=== PATIENT | male | born 1970 | race American Indian/Alaskan Native ===

== ENCOUNTER 2020-03-07 11:55 | Emergency (ER) | payer SELFPAY ==
[2020-03-07 13:11] VITALS: BP 132/93
--- NOTE | 2020-03-07 15:01 | Emergency Department Report ---
- General Chief complaint: Skin/Abscess/Foreign Body Stated complaint: ABD SWELLING Time Seen by Provider: 03/07/20 14:57 Source: patient Mode of arrival: Ambulatory Limitations: No Limitations - History of Present Illness Initial comments: Patient is a 49-year-old male presents emergency room with complaints of a possible abscess to the groin area that began a few days ago. Patient states that he believes it started as an ingrown hair but has enlarged over the last few days. He states he has had these in the past but they usually opened and drained on their own. He denies any drainage, fever, vomiting, diarrhea, chills. He has a past medical history of diabetes and takes Metformin Med. He states that his blood sugar has been stable. He denies any allergies to me dications. - Related Data Previous Rx's Medication Instructions Recorded Last Taken Type Acetaminophen/Codeine [Tylenol 1 tab PO Q8HR PRN #7 tab 03/07/20 Unknown Rx /Codeine # 3 tab] Ibuprofen [Motrin 600 MG tab] 600 mg PO Q8H PRN #14 tablet 03/07/20 Unknown Rx Sulfamethoxazole/Trimethoprim 1 each PO BID 10 Days #20 tablet 03/07/20 Unknown Rx [Bactrim DS TAB] Allergies Allergy/AdvReac Type Severity Reaction Status Date / Time No Known Allergies Allergy Unverified 03/07/20 13:08 Abscess Boil HPI - HPI Chief Complaint: Skin/Abscess/Foreign Body Stated Complaint: ABD SWELLING Time Seen by Provider: 03/07/20 14:57 Home Medications: Previous Rx's Medication Instructions Recorded Last Taken Type Acetaminophen/Codeine [Tylenol 1 tab PO Q8HR PRN #7 tab 03/07/20 Unknown Rx /Codeine # 3 tab] Ibuprofen [Motrin 600 MG tab] 600 mg PO Q8H PRN #14 tablet 03/07/20 Unknown Rx Sulfamethoxazole/Trimethoprim 1 each PO BID 10 Days #20 tablet 03/07/20 Unknown Rx [Bactrim DS TAB] Allergies/Adverse Reactions: Allergies Allergy/AdvReac Type Severity Reaction Status Date / Time No Known Allergies Allergy Unverified 03/07/20 13:08 ED Review of Systems ROS: Stated complaint: ABD SWELLING Other details as noted in HPI Comment: All other systems reviewed and negative ED Past Medical Hx - Past Medical History Previous Medical History?: Yes Hx Diabetes: Yes - Surgical History Past Surgical History?: Yes Additional Surgical History: left ankle surgery - Medications Home Medications: Home Medications Medication Instructions Recorded Confirmed Last Taken Type Acetaminophen/Codeine [Tylenol 1 tab PO Q8HR PRN #7 tab 03/07/20 Unknown Rx /Codeine # 3 tab] Ibuprofen [Motrin 600 MG tab] 600 mg PO Q8H PRN #14 tablet 03/07/20 Unknown Rx Sulfamethoxazole/Trimethoprim 1 each PO BID 10 Days #20 tablet 03/07/20 Unknown Rx [Bactrim DS TAB] ED Physical Exam - General Limitations: No Limitations General appearance: alert, in no apparent distress - Head Head exam: Present: atraumatic, normocephalic - Eye Eye exam: Present: normal appearance - ENT ENT exam: Present: mucous membranes moist - Respiratory Respiratory exam: Absent: respiratory distress, accessory muscle use - Neurological Exam Neurological exam: Present: alert, oriented X3 - Psychiatric Psychiatric exam: Present: normal affect, normal mood - Skin Skin exam: Present: warm, dry, other (3 cm area of induration and increased warmth present to the superior mons pubis, no drainage, no fluctuance, no necrosis, no opening at this time) ED Course Vital Signs 03/07/20 13:08 Temperature 98.6 F Pulse Rate 101 H Respiratory 16 Rate Blood Pressure 132/93 [Left] O2 Sat by Pulse 98 Oximetry ED Medical Decision Making - Medical Decision Making Patient is a 49-year-old male presents emergency room with complaints of a possible abscess to the groin area that began a few days ago. Patient states that he believes it started as an ingrown hair but has enlarged over the last few days. He states he has had these in the past but they usually opened and drained on their own. He denies any drainage, fever, vomiting, diarrhea, chills. He has a past medical history of diabetes and takes Metformin [place]. He states that his blood sugar has been stable. He denies any allergies to medications. VSS. on exam:3 cm area of induration and increased warmth present to the superior mons pubis, no drainage, no fluctuance, no necrosis, no opening at this time. Examination appears consistent with cellulitis at this time. There is no drainable abscess at this time. Will place patient on a trial of outpatient antibiotics and discussed very strict return precautions and advised patient that he needs to have the area reexamined within the next 3 days to see if he needs to have an I&D at that time. Patient given prescription for Bactrim, Tylenol with codeine, ibuprofen. Advised patient Please take medication as prescribed. Do not drive or operate machinery while taking pain medication. Please use warm compresses 3-5 times a day. Follow-up with a primary care doctor in the next 3 days to have the area reexamined. Return to emergency room immediately for any new or worsening symptoms including but not limited to worsening swelling, worsening redness, fever, chills, vomiting, etc. Critical care attestation.: If time is entered above; I have spent that time in minutes in the direct care of this critically ill patient, excluding procedure time. ED Disposition Clinical Impression: Cellulitis Qualifiers: Site of cellulitis: trunk Site of cellulitis of trunk: groin Qualified Code(s): L03.314 - Cellulitis of groin Disposition: - TO HOME OR SELFCARE Is pt being admited?: No Does the pt Need Aspirin: No Condition: Stable Instructions: Cellulitis, Adult Additional Instructions: Please take medication as prescribed. Do not drive or operate machinery while taking pain medication. Please use warm compresses 3-5 times a day. Follow-up with a primary care doctor in the next 3 days to have the area reexamined. Return to emergency room immediately for any new or worsening symptoms including but not limited to worsening swelling, worsening redness, fever, chills, vomiting, etc. Prescriptions: Sulfamethoxazole/Trimethoprim [Bactrim DS TAB] 1 each PO BID 10 Days #20 tablet Ibuprofen [Motrin 600 MG tab] 600 mg PO Q8H PRN #14 tablet PRN Reason: Pain, Moderate (4-6) Acetaminophen/Codeine [Tylenol /Codeine # 3 tab] 1 tab PO Q8HR PRN #7 tab PRN Reason: Pain , Severe (7-10) Referrals: JAMISON RAMOS MD [Primary Care Provider] - 2-3 Days FLAVIO MONTILLA MD [Staff Physician] - 2-3 Days [facility] [Provider Group] - 2-3 Days Time of Disposition: 14:59 Print Language: SLOVENIAN
== END 2020-03-07 15:53 | disposition home or self-care (01) ==
LOC: ED 11:55
DX: L03.314 Cellulitis of groin (principal); E11.9 Type 2 diabetes mellitus without complications; Z98.890 Other specified postprocedural states; Z79.899 Other long term (current) drug therapy
CPT/HCPCS: 99281

== ENCOUNTER 2020-05-26 02:33 | Inpatient (IN) | payer SELFPAY ==
[2020-05-26] MEDS ORDERED: SODIUM CHLORIDE 0.9% 1000 ML 1,000 ML IV ONE ×2 (02:46→06:24)
--- NOTE | 2020-05-26 02:49 | Event Note ---
ED Screening Note Date of service: 05/26/20 Time: 02:47 ED Screening Note: Patient is a 49-year-old male with history of diabetes type 2 who presents for hyperglycemia in the past week states worse tonight with blurred vision. There is no fever, chills, chest pain, diaphoresis. Symptoms are exacerbated by activity. Symptoms are relieved by nothing tried. Normal treatment plan is Metformin twice daily patient takes intermittently. This initial assessment/diagnostic orders/clinical plan/treatment(s) is/are subject to change based on patients health status, clinical progression and re- assessment by fellow clinical providers in the ED. Further treatment and workup at subsequent clinical providers discretion. Patient/guardian urged not to elope from the ED as their condition may be serious if not clinically assessed and managed. Initial orders include: CMP, CBC, Augustus PH, UA, IV, NS x 1 liter,
[2020-05-26 03:20] LABS: Basophils # (Auto) 0.1 K/mm3 (0.0-0.1); Eosinophils # (Auto) 0.1 K/mm3 (0.0-0.4); Eosinophils % (Auto) 1.1 % (0.0-4.3); Hemoglobin 14.1 gm/dl (11.8-15.2); Lymphocytes # (Auto) 1.8 K/mm3 (1.2-5.4); Mean Corpuscular HGB Conc 34 % (32-34); Mean Corpuscular Volume 88 fl (84-94); Monocytes # (Auto) 0.4 K/mm3 (0.0-0.8); Monocytes % (Auto) 5.6 % (0.0-7.3); Platelet Count 373 K/mm3 (140-440); Red Blood Count 4.75 M/mm3 (3.65-5.03); Red Cell Distribution Width 14.3 % (13.2-15.2)
[2020-05-26 03:22] LABS: Bilirubin,Urine NEG (Negative); Blood,Urine NEG (Negative); Color,Urine Straw (Yellow); Protein,Urine <15 mg/dL mg/dL (Negative); Urobilinogen,Urine < 2.0 mg/dL (<2.0); WBC,Urine < 1.0 /HPF (0.0-6.0)
[2020-05-26 03:39] LABS: Alanine Aminotransferase 19 units/L (7-56); Albumin 4.6 g/dL (3.9-5); BUN/Creatinine Ratio 8; Blood Urea Nitrogen 8 mg/dL (9-20); Calcium 9.7 mg/dL (8.4-10.2); Hemolysis Index 5
--- NOTE | 2020-05-26 06:34 | Emergency Department Report ---
HPI - General Chief Complaint: Hyperglycemia Time Seen by Provider: 05/26/20 06:24 - HPI HPI: Room 29 The patient is a 49-year-old male present with a chief complaint of blurred vision. Patient has history of diabetes and states he has been intermittently compliant with his diabetes medication. The patient states for 1 week he has had blurred vision polydipsia and polyuria. Patient denies nausea vomiting. Patient denies history of fever. ED Past Medical Hx - Past Medical History Previous Medical History?: Yes Hx Diabetes: Yes - Surgical History Past Surgical History?: Yes Additional Surgical History: left ankle surgery - Family History Family history: no significant - Social History Smoking Status: Never Smoker Substance Use Type: None (Denies illicit drug use), Alcohol (Occasional) - Medications Home Medications: Home Medications Medication Instructions Recorded Confirmed Last Taken Type Acetaminophen/Codeine [Tylenol 1 tab PO Q8HR PRN #7 tab 03/07/20 Unknown Rx /Codeine # 3 tab] Ibuprofen [Motrin 600 MG tab] 600 mg PO Q8H PRN #14 tablet 03/07/20 Unknown Rx ED Review of Systems ROS: Stated complaint: SHINGLES Other details as noted in HPI Constitutional: denies: fever Eyes: vision change (Blurred vision) ENT: denies: throat pain Respiratory: no symptoms reported Cardiovascular: denies: chest pain Endocrine: increased thirst, increased urine Gastrointestinal: denies: nausea Genitourinary: denies: dysuria Musculoskeletal: denies: back pain Neurological: denies: headache Physical Exam - Physical Exam Vital Signs: Vital Signs 05/26/20 02:42 Temperature 98.3 F Pulse Rate 115 H Respiratory 18 Rate Blood Pressure 139/98 O2 Sat by Pulse 97 Oximetry Physical Exam: GENERAL: The patient is well-developed well-nourished male sitting in chair not appearing to be in acute distress HEENT: Normocephalic. Atraumatic. Extraocular motions are intact. NECK: Supple. Trachea midline CHEST/LUNGS: Clear to auscultation. There is no respiratory distress noted. HEART/CARDIOVASCULAR: Regular. There is no tachycardia. There is no gallop rub or murmur. ABDOMEN: Abdomen is soft, nontender. Patient has normal bowel sounds. There is no abdominal distention. SKIN: There is no rash. There is no edema. There is no diaphoresis. NEURO: The patient is awake, alert, and oriented. The patient is cooperative. The patient has no focal neurologic deficits. The patient has normal speech MUSCULOSKELETAL: There is no evidence of acute injury. ED Course Vital Signs 05/26/20 02:42 Temperature 98.3 F Pulse Rate 115 H Respiratory 18 Rate Blood Pressure 139/98 O2 Sat by Pulse 97 Oximetry ED Medical Decision Making - Lab Data Result diagrams: 05/26/20 03:00 05/26/20 06:38 Laboratory Tests 05/26/20 05/26/20 05/26/20 02:50 02:53 03:00 WBC 6.3 RBC 4.75 Hgb 14.1 Hct 42.0 MCV 88 MCH 30 MCHC 34 RDW 14.3 Plt Count 373 Lymph % (Auto) 28.0 [place] % (Auto) 5.6 Eos % (Auto) 1.1 Baso % (Auto) 1.0 Lymph # (Auto) 1.8 [place] # (Auto) 0.4 Eos # (Auto) 0.1 Baso # (Auto) 0.1 Seg Neutrophils % 64.3 Seg Neutrophils # 4.1 VBG pH Sodium Potassium Chloride Carbon Dioxide Anion Gap BUN Creatinine Estimated GFR BUN/Creatinine Ratio Glucose POC Glucose 367 H Calcium Total Bilirubin AST ALT Alkaline Phosphatase Total Protein Albumin Albumin/Globulin Ratio Urine Color Straw Urine Turbidity Clear Urine pH 6.0 Ur Specific [place] 1.013 Urine Protein <15 mg/dl Urine Glucose (UA) >=500 Urine Ketones Neg Urine Blood Neg Urine Nitrite Neg Urine Bilirubin Neg Urine Urobilinogen < 2.0 Ur Leukocyte Esterase Neg Urine WBC (Auto) < 1.0 Urine RBC (Auto) 3.0 05/26/20 05/26/20 03:00 03:00 WBC RBC Hgb Hct MCV MCH MCHC RDW Plt Count Lymph % (Auto) [place] % (Auto) Eos % (Auto) Baso % (Auto) Lymph # (Auto) [place] # (Auto) Eos # (Auto) Baso # (Auto) Seg Neutrophils % Seg Neutrophils # VBG pH 7.274 L Sodium 138 Potassium 3.9 Chloride 99.2 Carbon Dioxide 22 Anion Gap 21 BUN 8 L Creatinine 1.0 Estimated GFR > 60 BUN/Creatinine Ratio 8 Glucose 406 H POC Glucose Calcium 9.7 Total Bilirubin < 0.20 AST 19 ALT 19 Alkaline Phosphatase 137 H Total Protein 8.0 Albumin 4.6 Albumin/Globulin Ratio 1.4 Urine Color Urine Turbidity Urine pH Ur Specific [place] Urine Protein Urine Glucose (UA) Urine Ketones Urine Blood Urine Nitrite Urine Bilirubin Urine Urobilinogen Ur Leukocyte Esterase Urine WBC (Auto) Urine RBC (Auto) - Differential Diagnosis DKA, hyperosmolar nonketotic state Critical care attestation.: If time is entered above; I have spent that time in minutes in the direct care of this critically ill patient, excluding procedure time. ED Disposition Clinical Impression: Diabetic hyperosmolar non-ketotic state Disposition: OP ADMIT IP TO THIS HOSP Is pt being admited?: Yes Does the pt Need Aspirin: No Condition: Fair Instructions: Diabetes Mellitus Type 2 in Adults (ED) Referrals: PRIMARY CARE, [Primary Care Provider] - 3-5 Days Time of Disposition: 08:22 (Hospitalist paged)
[2020-05-26] MEDS ORDERED: INSULIN REGULAR, HUMAN 100 UNITS in SODIUM CHLORIDE 0.9% 99 ML IV SCH (07:00)
[2020-05-26 07:12] LABS: BUN/Creatinine Ratio 10; Blood Urea Nitrogen 8 mg/dL (9-20); Calcium 8.9 mg/dL (8.4-10.2); Hemolysis Index 6
[2020-05-26 09:20] LABS: Blood Urea Nitrogen 8 mg/dL (9-20); Calcium 8.5 mg/dL (8.4-10.2); Hemolysis Index 2
[2020-05-26 09:27] LABS: BUN/Creatinine Ratio 11
[2020-05-26] MEDS: INSULIN REGULAR, HUMAN 100 UNITS/1 ML SUB-Q SCH ×2 (11:36→15:20)
[2020-05-26 12:18] LABS: BUN/Creatinine Ratio 10; Blood Urea Nitrogen 7 mg/dL (9-20); Calcium 8.4 mg/dL (8.4-10.2); Hemolysis Index 58
[2020-05-26 14:41] LABS: Blood Urea Nitrogen 7 mg/dL (9-20); Calcium 8.6 mg/dL (8.4-10.2); Hemolysis Index 67
[2020-05-26 15:13] LABS: BUN/Creatinine Ratio 10
[2020-05-26] MEDS ORDERED: oxyCODONE /ACETAMINOPHEN 5-325MG TAB PO PRN (16:17)
[2020-05-26] MEDS ORDERED: HYDROmorphone 1 MG/1 ML INJ IV PRN (16:17)
[2020-05-26] MEDS ORDERED: ONDANSETRON 4 MG/2 ML INJ IV PRN (16:17)
[2020-05-26] MEDS ORDERED: ACETAMINOPHEN 325 MG TAB PO PRN (16:17)
--- NOTE | 2020-05-26 16:27 | History and Physical Report ---
History of Present Illness Date of examination: 05/26/20 Date of admission: 05/26/20 08:26 Chief complaint: High blood glucose levels History of present illness: 49-year-old -Turkish male comes in for blurred vision. Is intermittently compliant with his diabetes medications. Patient has been having blurred vision polydipsia and polyuria. Denies nausea and vomiting. In the emergency room his blood glucose levels were very high. His blood glucose level was 402 with a normal anion gap. Also his hemoglobin A1c is 15. No nausea vomiting. No fever or chills. No exposure to coronavirus. - Past Medical History Previous Medical History?: Yes --Diabetes: Yes - Surgical History Past Surgical History?: Yes Additional Surgical History: left ankle surgery - Family History Family history: no significant - Social History Smoking Status: Never Smoker Substance Use Type: None (Denies illicit drug use), Alcohol (Occasional) - Medications Home Medications: Home Medications Medication Instructions Recorded Confirmed Last Taken Type Acetaminophen/Codeine [Tylenol 1 tab PO Q8HR PRN #7 tab 03/07/20 Unknown Rx /Codeine # 3 tab] Ibuprofen [Motrin 600 MG tab] 600 mg PO Q8H PRN #14 tablet 03/07/20 Unknown Rx Review of Systems ROS: Stated complaint: SHINGLES Other details as noted in HPI Constitutional: denies: fever Eyes: vision change (Blurred vision) ENT: denies: throat pain Respiratory: no symptoms reported Cardiovascular: denies: chest pain Endocrine: increased thirst, increased urine Gastrointestinal: denies: nausea Genitourinary: denies: dysuria Musculoskeletal: denies: back pain Neurological: denies: headache Medications and Allergies Allergies Allergy/AdvReac Type Severity Reaction Status Date / Time No Known Allergies Allergy Unverified 03/07/20 13:08 Home Medications Medication Instructions Recorded Confirmed Last Taken Type Acetaminophen/Codeine [Tylenol 1 tab PO Q8HR PRN #7 tab 03/07/20 05/26/20 Unknown Rx /Codeine # 3 tab] Ibuprofen [Motrin 600 MG tab] 600 mg PO Q8H PRN #14 tablet 03/07/20 05/26/20 Unknown Rx Active Meds: Active Medications Insulin Human Regular 100 (units/ Sodium Chloride) 100 mls @ 6 mls/hr IV TITR JEROME; Protocol Last Titration: 05/26/20 10:00 Dose: 0 units/hr, 0 mls/hr Documented by: Insulin Human Regular (Insulin Regular, Human 100 Units/1 Ml) 0 units SUB-Q Q4H [facility]; Protocol Last Admin: 05/26/20 15:20 Dose: Not Given Documented by: Exam - Constitutional Vitals: Temp Pulse Resp BP Pulse Ox 97.8 F 83 19 137/94 98 05/26/20 13:58 05/26/20 13:58 05/26/20 13:58 05/26/20 13:58 05/26/20 13:58 General appearance: Present: no acute distress, well-nourished - EENT Eyes: Present: PERRL ENT: hearing intact, clear oral mucosa - Neck Neck: Present: supple, normal ROM - Respiratory Respiratory effort: normal Respiratory: bilateral: CTA - Cardiovascular Heart rate: 78 Rhythm: regular Heart Sounds: Present: S1 & S2. Absent: rub, click - Extremities Extremities: no ischemia, pulses symmetrical, No edema Peripheral Pulses: within normal limits - Abdominal General gastrointestinal: Present: soft, non-tender, non-distended, normal bowel sounds Male genitourinary: Present: normal - Rectal Rectal Exam: deferred - Integumentary Integumentary: Present: clear, warm, dry - Musculoskeletal Musculoskeletal: gait normal, strength equal bilaterally - Psychiatric Psychiatric: appropriate mood/affect, intact judgment & insight - Neurologic Neurologic: CNII-XII intact, moves all extremities - Allied Health Allied health notes reviewed: nursing, case management Results - Labs CBC & Chem 7: 05/26/20 03:00 05/28/20 05:10 Labs: Laboratory Last Values WBC 6.3 K/mm3 (4.5-11.0) 05/26/20 03:00 RBC 4.75 M/mm3 (3.65-5.03) 05/26/20 03:00 Hgb 14.1 gm/dl (11.8-15.2) 05/26/20 03:00 Hct 42.0 % (35.5-45.6) 05/26/20 03:00 MCV 88 fl (84-94) 05/26/20 03:00 MCH 30 pg (28-32) 05/26/20 03:00 MCHC 34 % (32-34) 05/26/20 03:00 RDW 14.3 % (13.2-15.2) 05/26/20 03:00 Plt Count 373 K/mm3 (140-440) 05/26/20 03:00 Lymph % (Auto) 28.0 % (13.4-35.0) 05/26/20 03:00 [place] % (Auto) 5.6 % (0.0-7.3) 05/26/20 03:00 Eos % (Auto) 1.1 % (0.0-4.3) 05/26/20 03:00 Baso % (Auto) 1.0 % (0.0-1.8) 05/26/20 03:00 Lymph # (Auto) 1.8 K/mm3 (1.2-5.4) 05/26/20 03:00 [place] # (Auto) 0.4 K/mm3 (0.0-0.8) 05/26/20 03:00 Eos # (Auto) 0.1 K/mm3 (0.0-0.4) 05/26/20 03:00 Baso # (Auto) 0.1 K/mm3 (0.0-0.1) 05/26/20 03:00 Seg Neutrophils % 64.3 % (40.0-70.0) 05/26/20 03:00 Seg Neutrophils # 4.1 K/mm3 (1.8-7.7) 05/26/20 03:00 VBG pH 7.274 (7.320-7.420) L 05/26/20 03:00 Sodium 144 mmol/L (137-145) 05/26/20 13:30 Potassium 4.0 mmol/L (3.6-5.0) 05/26/20 13:30 Chloride 109.7 mmol/L (98-107) H 05/26/20 13:30 Carbon Dioxide 23 mmol/L (22-30) 05/26/20 13:30 Anion Gap 15 mmol/L 05/26/20 13:30 BUN 7 mg/dL (9-20) L 05/26/20 13:30 Creatinine 0.7 mg/dL (0.8-1.3) L 05/26/20 13:30 Estimated GFR > 60 ml/min 05/26/20 13:30 BUN/Creatinine Ratio 10 % 05/26/20 13:30 Glucose 94 mg/dL (75-100) 05/26/20 13:30 POC Glucose 86 mg/dL (70-105) 05/26/20 11:34 Calcium 8.6 mg/dL (8.4-10.2) 05/26/20 13:30 Phosphorus 3.20 mg/dL (2.5-4.5) 05/26/20 06:38 Magnesium 1.70 mg/dL (1.7-2.3) 05/26/20 06:38 Total Bilirubin < 0.20 mg/dL (0.1-1.2) 05/26/20 03:00 AST 19 units/L (5-40) 05/26/20 03:00 ALT 19 units/L (7-56) 05/26/20 03:00 Alkaline Phosphatase 137 units/L (35-129) H 05/26/20 03:00 Total Protein 8.0 g/dL (6.3-8.2) 05/26/20 03:00 Albumin 4.6 g/dL (3.9-5) 05/26/20 03:00 Albumin/Globulin Ratio 1.4 % 05/26/20 03:00 Urine Color Straw (Yellow) 05/26/20 02:53 Urine Turbidity Clear (Clear) 05/26/20 02:53 Urine pH 6.0 (5.0-7.0) 05/26/20 02:53 Ur Specific [place] 1.013 (1.003-1.030) 05/26/20 02:53 Urine Protein <15 mg/dl mg/dL (Negative) 05/26/20 02:53 Urine Glucose (UA) >=500 mg/dL (Negative) 05/26/20 02:53 Urine Ketones Neg mg/dL (Negative) 05/26/20 02:53 Urine Blood Neg (Negative) 05/26/20 02:53 Urine Nitrite Neg (Negative) 05/26/20 02:53 Urine Bilirubin Neg (Negative) 05/26/20 02:53 Urine Urobilinogen < 2.0 mg/dL (<2.0) 05/26/20 02:53 Ur Leukocyte Esterase Neg (Negative) 05/26/20 02:53 Urine WBC (Auto) < 1.0 /HPF (0.0-6.0) 05/26/20 02:53 Urine RBC (Auto) 3.0 /HPF (0.0-6.0) 05/26/20 02:53 BMP 05/28/20 05:10 Sodium 141 Potassium 3.5 L Chloride 108.9 H Carbon Dioxide 23 BUN 6 L Creatinine 0.8 Glucose 70 L Calcium 8.5 Assessment and Plan Advance Directives: Yes - Patient Problems (1) Diabetic hyperosmolar non-ketotic state Current Visit: Yes Status: Acute Plan to address problem: Hyperosmolar nonketotic state-early Patient initiated on insulin initially but the blood glucose levels dropped and hence patient is being admitted to [facility] floor with the frequent Accu-Cheks and high-dose sliding scale coverage Hemoglobin A1c is 15 very high (2) DVT prophylaxis Current Visit: Yes Status: Acute Plan to address problem: Patient on heparin and GI prophylaxis
[2020-05-26 17:02] LABS: BUN/Creatinine Ratio 10; Blood Urea Nitrogen 8 mg/dL (9-20); Calcium 8.7 mg/dL (8.4-10.2); Hemolysis Index 24
[2020-05-26] MEDS: INSULIN LISPRO 100 UNIT/ML SUB-Q SCH ×2 (17:04→21:42)
[2020-05-26] MEDS: HEPARIN 5,000 UNIT/1 ML VIAL SUB-Q SCH (21:22)
[2020-05-26] MEDS: FAMOTIDINE 20 MG/2 ML INJ IV SCH (21:22)
[2020-05-26] MEDS: INSULIN GLARGINE 100 UNITS/ML SUB-Q SCH (21:44)
[2020-05-26 23:27] LABS: BUN/Creatinine Ratio 13; Blood Urea Nitrogen 12 mg/dL (9-20); Calcium 8.5 mg/dL (8.4-10.2); Hemolysis Index 4
[2020-05-27] MEDS: INSULIN LISPRO 100 UNIT/ML SUB-Q SCH ×6 (02:46→22:15)
[2020-05-27 07:34] LABS: BUN/Creatinine Ratio 10; Blood Urea Nitrogen 9 mg/dL (9-20); Calcium 8.8 mg/dL (8.4-10.2); Hemolysis Index 3
[2020-05-27] MEDS: HEPARIN 5,000 UNIT/1 ML VIAL SUB-Q SCH ×2 (09:57→21:40)
[2020-05-27] MEDS: FAMOTIDINE 20 MG/2 ML INJ IV SCH (09:57)
[2020-05-27] MEDS: SODIUM CHLORIDE 0.9% 1000 ML 1,000 ML IV SCH ×2 (10:02→17:10)
[2020-05-27] MEDS ORDERED: POTASSIUM CHLORIDE ER 20 MEQ TAB PO ONE (11:28)
--- NOTE | 2020-05-27 11:36 | Progress Note ---
Assessment and Plan - Patient Problems (1) Diabetic hyperosmolar non-ketotic state Current Visit: Yes Status: Acute Plan to address problem: Hyperosmolar nonketotic state-early Patient initiated on insulin initially but the blood glucose levels dropped and hence [facility] Accu-Cheks and high-dose sliding scale coverage Hemoglobin A1c is 15 very high (2) Blurred vision, bilateral Current Visit: Yes Status: Acute Plan to address problem: Secondary to high glucose levels (3) DVT prophylaxis Current Visit: Yes Status: Acute Plan to address problem: Patient on heparin and GI prophylaxis Subjective Date of service: 05/27/20 Principal diagnosis: Hyperosmolar nonketotic state and diabetes Interval history: 49-year-old -Maldivian male comes in for blurred vision. Is intermittently compliant with his diabetes medications. Patient has been having blurred vision polydipsia and polyuria. Denies nausea and vomiting. In the emergency room his blood glucose levels were very high. His blood glucose level was 402 with a normal anion gap. Also his hemoglobin A1c is 15. No nausea vomiting. No fever or chills. No exposure to coronavirus. 05/27/2020 Symptomatically better Continues to have blurred vision Blood glucose levels in 300 Objective - Constitutional Vitals: Vital Signs - 12hr 05/27/20 04:28 Temperature 98.3 F Pulse Rate 87 Respiratory 16 Rate Blood Pressure 116/83 O2 Sat by Pulse 97 Oximetry General appearance: Present: no acute distress, well-nourished - EENT Eyes: PERRL, EOM intact ENT: hearing intact, clear oral mucosa Ears: bilateral: normal - Neck Neck: supple, normal ROM - Respiratory Respiratory effort: normal Respiratory: bilateral: CTA - Breasts Breasts: normal - Cardiovascular Heart rate: 78 Rhythm: regular Heart Sounds: Present: S1 & S2. Absent: gallop, rub Extremities: pulses intact, No edema, normal color, Full ROM - Gastrointestinal General gastrointestinal: Present: soft, non-tender, non-distended, normal bowel sounds - Genitourinary Male genitourinary: normal - Integumentary Integumentary: clear, warm, dry - Musculoskeletal Musculoskeletal: 1, strength equal bilaterally - Neurologic Neurologic: moves all extremities - Psychiatric Psychiatric: memory intact, appropriate mood/affect, intact judgment & insight - Labs CBC & Chem 7: 05/26/20 03:00 05/28/20 05:10 Labs: Abnormal lab results 05/26/20 05/26/20 05/26/20 Range/Units 03:00 11:21 13:30 Sodium (137-145) mmol/L Potassium (3.6-5.0) mmol/L Chloride 110.7 H 109.7 H (98-107) mmol/L Carbon Dioxide 19 L (22-30) mmol/L BUN 7 L 7 L (9-20) mg/dL Creatinine 0.7 L 0.7 L (0.8-1.3) mg/dL Glucose 111 H (75-100) mg/dL POC Glucose (70-105) mg/dL Hemoglobin A1c 15.2 H (4-6) % 05/26/20 05/26/20 05/26/20 Range/Units 16:08 16:33 21:36 Sodium (137-145) mmol/L Potassium (3.6-5.0) mmol/L Chloride (98-107) mmol/L Carbon Dioxide 20 L (22-30) mmol/L BUN 8 L (9-20) mg/dL Creatinine (0.8-1.3) mg/dL Glucose 214 H (75-100) mg/dL POC Glucose 204 H 269 H (70-105) mg/dL Hemoglobin A1c (4-6) % 05/26/20 05/27/20 05/27/20 Range/Units 22:53 02:20 06:52 Sodium 136 L (137-145) mmol/L Potassium 3.2 L (3.6-5.0) mmol/L Chloride 107.4 H (98-107) mmol/L Carbon Dioxide (22-30) mmol/L BUN (9-20) mg/dL Creatinine (0.8-1.3) mg/dL Glucose 319 H 58 L (75-100) mg/dL POC Glucose 307 H (70-105) mg/dL Hemoglobin A1c (4-6) %
[2020-05-27] MEDS: FAMOTIDINE 20 MG TAB PO SCH (21:39)
[2020-05-27] MEDS: INSULIN GLARGINE 100 UNITS/ML SUB-Q SCH (22:15)
[2020-05-28] MEDS: SODIUM CHLORIDE 0.9% 1000 ML 1,000 ML IV SCH (01:13)
[2020-05-28 06:22] LABS: BUN/Creatinine Ratio 8; Blood Urea Nitrogen 6 mg/dL (9-20); Calcium 8.5 mg/dL (8.4-10.2); Hemolysis Index 3
[2020-05-28] MEDS: INSULIN LISPRO 100 UNIT/ML SUB-Q SCH ×2 (07:30→11:30)
[2020-05-28] MEDS: HEPARIN 5,000 UNIT/1 ML VIAL SUB-Q SCH (09:23)
[2020-05-28] MEDS: FAMOTIDINE 20 MG TAB PO SCH (09:25)
--- NOTE | 2020-05-28 12:35 | Discharge Summary ---
Providers - Providers Date of Admission: 05/26/20 08:26 Date of discharge: 05/28/20 Attending physician: RADHA IBARRA Primary care physician: [employer] Hospitalization Condition: Fair Hospital course: Subjective Date of service: 05/28/20 Principal diagnosis: Hyperosmolar nonketotic state and diabetes Interval history: 49-year-old -[place] male comes in for blurred vision. Is intermittently compliant with his diabetes medications. Patient has been having blurred vision polydipsia and polyuria. Denies nausea and vomiting. In the emergency room his blood glucose levels were very high. His blood glucose level was 402 with a normal anion gap. Also his hemoglobin A1c is 15. No nausea vomiting. No fever or chills. No exposure to coronavirus. 05/27/2020 Symptomatically better Continues to have blurred vision Blood glucose levels in 300 05/28/2020 Symptomatically better We will discharge on insulin 70/30 twice a day 15 units twice daily and Metformin 500 twice daily Also on glucometer and lancets and strips Patient to follow-up with [facility] clinic - Patient Problems (1) Diabetic hyperosmolar non-ketotic state Current Visit: Yes Status: Acute Plan to address problem: Hyperosmolar nonketotic state-early Patient initiated on insulin initially but the blood glucose levels dropped and hence patient is being admitted to [facility] floor with the frequent Accu-Cheks and high-dose sliding scale coverage Hemoglobin A1c is 15 very high (2) Blurred vision, bilateral Current Visit: Yes Status: Acute Plan to address problem: Secondary to high glucose levels (3) DVT prophylaxis Current Visit: Yes Status: Acute Plan to address problem: Patient on heparin and GI prophylaxis Disposition: DC-01 TO HOME OR SELFCARE - Discharge Diagnoses (1) Diabetic hyperosmolar non-ketotic state Status: Acute (2) Blurred vision, bilateral Status: Acute (3) DVT prophylaxis Status: Acute Core Measure Documentation - Palliative Care Palliative Care/ Comfort Measures: Not Applicable - Core Measures Any of the following diagnoses?: none Exam - Constitutional Vitals: Temp Pulse Resp BP Pulse Ox 97.9 F 79 18 127/88 99 05/28/20 05:00 05/28/20 05:00 05/28/20 05:00 05/28/20 05:00 05/28/20 08:22 General appearance: Present: no acute distress, well-nourished - EENT Eyes: Present: PERRL ENT: hearing intact, clear oral mucosa - Neck Neck: Present: supple, normal ROM - Respiratory Respiratory effort: normal Respiratory: bilateral: CTA - Cardiovascular Heart rate: 78 Rhythm: regular Heart Sounds: Present: S1 & S2. Absent: rub, click - Extremities Extremities: no ischemia, pulses symmetrical, No edema Peripheral Pulses: within normal limits - Abdominal General gastrointestinal: Present: soft, non-tender, non-distended, normal bowel sounds Male genitourinary: Present: normal - Integumentary Integumentary: Present: clear, warm, dry - Musculoskeletal Musculoskeletal: gait normal, strength equal bilaterally - Psychiatric Psychiatric: appropriate mood/affect, intact judgment & insight - Neurologic Neurologic: CNII-XII intact, moves all extremities Plan Activity: no restrictions Diet: diabetic Follow up with: PRIMARY CARE, [Primary Care Provider] - 3-5 Days [facility], [LAB/CONTRACT] - 7 Days
[2020-05-28 13:22] VITALS: BP 136/90
== END 2020-05-28 14:20 | disposition home or self-care (01) | DRG 639 ==
LOC: ED 02:33 → OBSVTOIN 08:26 → IMCU 08:26 → 3A 12:47
PROVIDERS: ADMIT Internal Medicine; ATTEND Internal Medicine
DX: E11.00 Type 2 diabetes mellitus with hyperosmolarity without nonketotic hyperglycemic-hyperosmolar coma (NKHHC) (principal); H53.8 Other visual disturbances; Z72.89 Other problems related to lifestyle; Z79.899 Other long term (current) drug therapy
CPT/HCPCS: 36415; 80048; 80053; 81001; 82805; 82962; 83036; 83735; 84100; 85025; G0378; J1170; J1644; J1815; J2405; J7030

== ENCOUNTER 2020-08-30 11:08 | Emergency (ER) | payer SELFPAY ==
--- NOTE | 2020-08-30 11:35 | Emergency Department Report ---
Chief Complaint: Extremity Injury, Upper Stated Complaint: HEADACHE Time Seen by Provider: 08/30/20 11:32 - HPI History of Present Illness: Patient is a 50-year-old male presents emergency room with continued right hand pain. Patient states that on 08/22/2020 a grill top of close onto his hand. He states since then he has had continued pain. He states that the swelling has been improving. He has not followed up with a primary care doctor or orthopedic doctor. He denies any numbness or weakness. He had a x-ray performed in the emergency department on 08/22/2020 with no acute process. Patient denies any allergies to medications. vss on exam: There is a splint currently on his right arm that was performed by the emergency department, he has brisk cap refill, sensation intact to the fingers, no edema to the fingers, compartment of the dorsal hand palpated and appears soft Patient is presenting for continued pain after crush injury He had x-rays performed at the initial injury with no acute process He is currently wearing a splint Patient will be referred to orthopedic doctor for further evaluation He has no signs of neurovascular compromise Discussed return precautions Discussed the importance of follow-up Medical screen examination performed there is no threat to life or limb at this time - Exam Vital Signs: Vital Signs 08/30/20 11:16 Temperature 98.2 F Pulse Rate 79 Respiratory 18 Rate Blood Pressure 134/93 O2 Sat by Pulse 99 Oximetry MSE screening note: Focused history and physical exam performed. Due to findings the following was ordered: ED Disposition for MSE Clinical Impression: Hand crush injury Qualifiers: Encounter type: subsequent encounter Laterality: right Qualified Code(s): S67.21XD - Crushing injury of right hand, subsequent encounter Disposition: Z-07 MED SCREENING EXAM-LEFT Is pt being admited?: No Does the pt Need Aspirin: No Condition: Stable Instructions: Crush Injury of the Hand Additional Instructions: May alternate Tylenol or ibuprofen as needed for discomfort. Follow-up with a orthopedic doctor. Return to emergency room for any new or worsening symptoms. Referrals: [facility] [Provider Group] - 2-3 Days MAHNAZ BAEZA MD [Staff Physician] - 2-3 Days Forms: Work/School Release Form(ED) Time of Disposition: 11:34 Print Language: GUAMANIAN
[2020-08-30 14:03] VITALS: BP 129/73
== END 2020-08-30 14:02 | disposition left against medical advice (07) ==
LOC: ED 11:08
DX: S69.91XA Unspecified injury of right wrist, hand and finger(s), initial encounter (principal); Z53.21 Procedure and treatment not carried out due to patient leaving prior to being seen by health care provider; W23.0XXA Caught, crushed, jammed, or pinched between moving objects, initial encounter; Y93.89 Activity, other specified; Y92.89 Other specified places as the place of occurrence of the external cause; Y99.8 Other external cause status

== ENCOUNTER 2020-10-11 12:39 | Emergency (ER) | payer SELFPAY ==
[2020-10-11 12:44] VITALS: BP 142/93
--- NOTE | 2020-10-11 12:52 | Emergency Department Report ---
ED General Adult HPI - General Chief complaint: Extremity Injury, Upper Stated complaint: SWOLLEN RIGHT ARM Time Seen by Provider: 10/11/20 12:45 Source: patient Mode of arrival: Ambulatory Limitations: No Limitations - History of Present Illness Initial comments: 50-year-old [id number] male patient with history of gout presents to the emergency department with complaints of nontraumatic right hand swelling starting yesterday. Patient states he has experienced gout flareups in his right hand before. Current symptoms are reminiscent of prior gout flareups. Took ibuprofen with limited relief. He is not on chronic urate lowering therapy. No recent injury. Denies fever, chills, erythema, purulent drainage, paresthesias, numbness, weakness. Denies all other complaints at this time. - Related Data Previous Rx's Medication Instructions Recorded Last Taken Type Acetaminophen/Codeine [Tylenol 1 tab PO Q8HR PRN #7 tab 03/07/20 Unknown Rx /Codeine # 3 tab] Ibuprofen [Motrin 600 MG tab] 600 mg PO Q8H PRN #14 tablet 03/07/20 Unknown Rx Insulin NPH Hum/Reg Insulin Hm 15 unit SQ BID #1 ml 05/28/20 Unknown Rx [Relion Novolin 70-30 Vial] metFORMIN [Glucophage] 500 mg PO BID #60 tablet 05/28/20 Unknown Rx Ketorolac [Toradol] 10 mg PO Q6H PRN #14 tablet 08/22/20 Unknown Rx traMADoL [Ultram] 50 mg PO Q6HR PRN #14 tablet 08/22/20 Unknown Rx Colchicine 0.6 mg PO UNK #9 capsule 10/11/20 Unknown Rx Indomethacin 50 mg PO Q8H 5 Days capsule 10/11/20 Unknown Rx Allergies Allergy/AdvReac Type Severity Reaction Status Date / Time No Known Allergies Allergy Verified 10/11/20 12:40 ED Review of Systems ROS: Stated complaint: SWOLLEN RIGHT ARM Other details as noted in HPI Other: GENERAL: Negative for fever. CARDIOVASCULAR: Negative for chest pain. PULMONARY: Negative for shortness of breath. GASTROINTESTINAL: Negative for abdominal pain. MUSCULOSKELETAL: Positive for right hand pain and swelling. NEUROLOGICAL: Negative for headache. INTEGUMENTARY: Negative for rash. ED Past Medical Hx - Past Medical History Hx Diabetes: Yes - Surgical History Additional Surgical History: left ankle surgery - Social History Smoking Status: Never Smoker Substance Use Type: None - Medications Home Medications: Home Medications Medication Instructions Recorded Confirmed Last Taken Type Acetaminophen/Codeine [Tylenol 1 tab PO Q8HR PRN #7 tab 03/07/20 05/26/20 Unknown Rx /Codeine # 3 tab] Ibuprofen [Motrin 600 MG tab] 600 mg PO Q8H PRN #14 tablet 03/07/20 05/26/20 Unknown Rx Insulin NPH Hum/Reg Insulin Hm 15 unit SQ BID #1 ml 05/28/20 Unknown Rx [Relion Novolin 70-30 Vial] metFORMIN [Glucophage] 500 mg PO BID #60 tablet 05/28/20 Unknown Rx Ketorolac [Toradol] 10 mg PO Q6H PRN #14 tablet 08/22/20 Unknown Rx traMADoL [Ultram] 50 mg PO Q6HR PRN #14 tablet 08/22/20 Unknown Rx Colchicine 0.6 mg PO UNK #9 capsule 10/11/20 Unknown Rx Indomethacin 50 mg PO Q8H 5 Days capsule 10/11/20 Unknown Rx ED Physical Exam - General Limitations: No Limitations - Other Other exam information: General: Awake, appropriately interactive, no acute distress. Neck: Supple. Full range of motion intact. Cardiovascular: Normal peripheral perfusion. Pulmonary: No respiratory distress. Patient is speaking normally without use of accessory muscles. Skin: No apparent rashes or lesions. Neurological: No facial asymmetry. Speech is clear. Follows commands. Patient is alert and oriented. Musculoskeletal: Tenderness to palpation along the dorsal aspect of the hand, most pronounced along the second and third MCP joints, with overlying soft tissue swelling. No overlying warmth or erythema. Full range of motion intact. Strong radial pulse. Distal neurovascular and motor/sensory function intact. Psych: Cooperative. Appropriate mood and affect. ED Course Vital Signs 10/11/20 12:40 Temperature 98.4 F Pulse Rate 78 Respiratory 20 Rate Blood Pressure 142/93 O2 Sat by Pulse 98 Oximetry ED Medical Decision Making - Medical Decision Making Differential diagnosis including but not limited to: septic arthritis, gout, pseudogout, sprain/strain, fracture, contusion Patient with history of gout presents to ED w/ complaints of non-traumatic right hand pain/swelling, consistent with prior gout exacerbations. He is afebrile, hemodynamically stable, neurologically intact. Pain is appropriately proportional to exam findings. History and exam findings consistent with gout. No clinical indication for further diagnostic work-up on an emergent basis at this time. Patient will be discharged home with appropriate analgesics and referred to primary care provider for close outpatient follow-up. Patient expressed understanding and is agreeable to plan of care. Lifestyle modifications discussed. Strict return precautions provided. History, exam, diagnostic testing, and current condition do not suggest worrisome pathology to warrant further testing, continued ED treatment, admission, or surgical evaluation at this point. Given the low probability of a significant medical illness, it would be more likely to result in harm than benefit to perform further testing at this stage. Discussed findings, presumptive diagnosis, need for follow-up and specific signs/symptoms that should prompt immediate return to the emergency department. Instructions were explained in detail to the patient in addition to giving written discharge information. Patient expressed understanding and was given the opportunity to ask questions, all of which were satisfactorily answered prior to discharge home. Critical care attestation.: If time is entered above; I have spent that time in minutes in the direct care of this critically ill patient, excluding procedure time. ED Disposition Clinical Impression: Localized swelling on right hand, History of gout Disposition: DC-01 TO HOME OR SELFCARE Is pt being admited?: No Does the pt Need Aspirin: No Condition: Stable Instructions: Low-Purine Eating Plan Additional Instructions: Take Colchicine and Indomethacin with food as directed. Apply cool compresses to affected area as needed for swelling. Keep right hand elevated as often as possible to reduce swelling. Eliminate red meat, shellfish, and alcohol from your diet. Follow-up with primary care provider this week. Call today to schedule an appointment. See referral information below. Return to the emergency department immediately for new or worsening symptoms. Prescriptions: Colchicine 0.6 mg PO UNK #9 capsule Indomethacin 50 mg PO Q8H 5 Days capsule Referrals: FLAVIO MONTILLA MD [Staff Physician] - 3-5 Days [facility] [Provider Group] - 3-5 Days Forms: Work/School Release Form(ED) Time of Disposition: 12:54
== END 2020-10-11 14:11 | disposition home or self-care (01) ==
LOC: ED 12:39
DX: R22.31 Localized swelling, mass and lump, right upper limb (principal); M10.9 Gout, unspecified; E11.9 Type 2 diabetes mellitus without complications; Z79.899 Other long term (current) drug therapy
CPT/HCPCS: 99282

== ENCOUNTER 2020-11-06 15:02 | Emergency (ER) | payer SELFPAY ==
[2020-11-06 17:43] VITALS: BP 151/99
--- NOTE | 2020-11-06 18:36 | XRay Report ---
Right hand-3 views INDICATION: right hand pain. Right hand swelling for the past few days, no reported injury COMPARISON: Right hand radiograph from 08/22/2020 IMPRESSION: No acute osseous abnormality. Mild soft tissue swelling is seen overlying some of the I P joints where there is underlying mild to moderately advanced degenerative change. There is also sca ttered subchondral cyst formation. Degenerative changes are also seen in the carpal bones. Normal ali gnment. There is an old healed little finger metacarpal fracture. Signer Name: Madhu Garcia MD Signed: 11/06/2020 6:31 PM Workstation Name: [id number]
[2020-11-06] MEDS ORDERED: dexAMETHasone 20 MG/5 ML VIAL IM ONE (20:25)
[2020-11-06] MEDS ORDERED: dexAMETHasone 20 MG/5 ML VIAL IV ONE (20:33)
[2020-11-06] MEDS ORDERED: COLCHICINE 0.6 MG TAB PO ONE (21:00)
--- NOTE | 2020-11-06 21:16 | Emergency Department Report ---
ED Upper Extremity Inj HPI - General Chief Complaint: Extremity Injury, Upper Stated Complaint: RT HAND SWOLLEN Time Seen by Provider: 11/06/20 17:42 Source: patient Mode of arrival: Ambulatory Limitations: No Limitations - History of Present Illness Initial Comments: This is a 50-year-old male nontoxic, well nourished in appearance, no acute signs of distress presents to the ED with c/o of right hand pain 1 several days. Patient stated has history of gout but symptoms are similar. Patient otherwise denies any injuries or trauma. Patient denies any numbness, tingling, fever, chills, nausea, vomiting, chest pain, shortness of breath, headache, stiff neck. Patient denies any joint swelling or joint redness. Patient denies decreased range of motion but stated has some pain . Patient denies any allergies. MD Complaint: Injury to:: right, hand -: days(s) Other Extremity Injury: Hand: Right Severity scale (0 -10): 8 Improves With: immobilization Worsens With: movement of extremity Associated Symptoms: denies other symptoms. denies: weakness, numbness, neck pain, suspects foreign body, nausea/vomiting, heard/felt popping sensat - Related Data Previous Rx's Medication Instructions Recorded Last Taken Type Acetaminophen/Codeine [Tylenol 1 tab PO Q8HR PRN #7 tab 03/07/20 Unknown Rx /Codeine # 3 tab] Ibuprofen [Motrin 600 MG tab] 600 mg PO Q8H PRN #14 tablet 03/07/20 Unknown Rx Insulin NPH Hum/Reg Insulin Hm 15 unit SQ BID #1 ml 05/28/20 Unknown Rx [Relion Novolin 70-30 Vial] metFORMIN [Glucophage] 500 mg PO BID #60 tablet 05/28/20 Unknown Rx Ketorolac [Toradol] 10 mg PO Q6H PRN #14 tablet 08/22/20 Unknown Rx traMADoL [Ultram] 50 mg PO Q6HR PRN #14 tablet 08/22/20 Unknown Rx Colchicine 0.6 mg PO UNK #9 capsule 10/11/20 Unknown Rx Indomethacin 50 mg PO Q8H 5 Days capsule 10/11/20 Unknown Rx Colchicine 0.6 mg PO ONCE #1 tablet 11/06/20 Unknown Rx Naproxen 500 mg PO Q8H PRN #12 tablet 11/06/20 Unknown Rx Allergies Allergy/AdvReac Type Severity Reaction Status Date / Time No Known Allergies Allergy Verified 10/11/20 12:40 ED Review of Systems ROS: Stated complaint: RT HAND SWOLLEN Other details as noted in HPI Comment: All other systems reviewed and negative Constitutional: denies: chills, fever Eyes: denies: eye pain, eye discharge, vision change ENT: denies: ear pain, throat pain Respiratory: denies: cough, shortness of breath, wheezing Cardiovascular: denies: chest pain, palpitations Endocrine: no symptoms reported Gastrointestinal: denies: abdominal pain, nausea, diarrhea Genitourinary: denies: urgency, dysuria Musculoskeletal: denies: back pain, joint swelling, arthralgia Skin: denies: rash, lesions Neurological: denies: headache, weakness, paresthesias Psychiatric: denies: anxiety, depression Hematological/Lymphatic: denies: easy bleeding, easy bruising ED Past Medical Hx - Past Medical History Previous Medical History?: Yes Hx Diabetes: Yes - Surgical History Past Surgical History?: Yes Additional Surgical History: left ankle surgery - Social History Smoking Status: Never Smoker Substance Use Type: None - Medications Home Medications: Home Medications Medication Instructions Recorded Confirmed Last Taken Type Acetaminophen/Codeine [Tylenol 1 tab PO Q8HR PRN #7 tab 03/07/20 05/26/20 Unknown Rx /Codeine # 3 tab] Ibuprofen [Motrin 600 MG tab] 600 mg PO Q8H PRN #14 tablet 03/07/20 05/26/20 Unknown Rx Insulin NPH Hum/Reg Insulin Hm 15 unit SQ BID #1 ml 05/28/20 Unknown Rx [Relion Novolin 70-30 Vial] metFORMIN [Glucophage] 500 mg PO BID #60 tablet 05/28/20 Unknown Rx Ketorolac [Toradol] 10 mg PO Q6H PRN #14 tablet 08/22/20 Unknown Rx traMADoL [Ultram] 50 mg PO Q6HR PRN #14 tablet 08/22/20 Unknown Rx Colchicine 0.6 mg PO UNK #9 capsule 10/11/20 Unknown Rx Indomethacin 50 mg PO Q8H 5 Days capsule 10/11/20 Unknown Rx Colchicine 0.6 mg PO ONCE #1 tablet 11/06/20 Unknown Rx Naproxen 500 mg PO Q8H PRN #12 tablet 11/06/20 Unknown Rx ED Physical Exam - General Limitations: No Limitations General appearance: alert, in no apparent distress - Head Head exam: Present: atraumatic, normocephalic - Eye Eye exam: Present: normal appearance - Neck Neck exam: Present: normal inspection, full ROM. Absent: lymphadenopathy - Respiratory Respiratory exam: Absent: respiratory distress - Cardiovascular Cardiovascular Exam: Present: regular rate - Extremities Exam Extremities exam: Present: normal inspection, full ROM, tenderness, normal capillary refill, joint swelling. Absent: calf tenderness - Expanded Upper Extremity Exam Right General: Present: normal inspection Shoulder Exam: Present: normal inspection, full ROM. Absent: tenderness, swelling Upper Arm exam: Present: normal inspection, full ROM. Absent: tenderness, swelling Elbow exam: Present: normal inspection, full ROM. Absent: tenderness, swelling Forearm Wrist exam: Present: normal inspection, full ROM. Absent: tenderness, swelling, abrasion, laceration, ecchymosis, deformity, crepidus, dislocation, erythema, tenderness over anatomical snuff box, pain with axial thumb loading Hand Wrist exam: Present: normal inspection, full ROM, tenderness, swelling. Absent: abrasion, laceration, ecchymosis, deformity, crepidus, dislocation, erythema, amputation, nail avulsion, subungual hematoma Hand L/R Back: 1 - Gout flare here Vascular: Present: normal capillary refill. Absent: vascular compromise (Neurovascular within normal limits) - Back Exam Back exam: Present: normal inspection, full ROM - Neurological Exam Neurological exam: Present: alert, oriented X3, normal gait - Psychiatric Psychiatric exam: Present: normal affect, normal mood - Skin Skin exam: Present: warm, dry, intact, normal color. Absent: rash ED Course Vital Signs 11/06/20 17:42 Temperature 98.2 F Pulse Rate 80 Respiratory 18 Rate Blood Pressure 151/99 [Right] O2 Sat by Pulse 99 Oximetry - Reevaluation(s) Reevaluation #1: 11/06/20 21:13 Patient is speaking in full sentences with no signs of distress noted. ED Medical Decision Making - Lab Data Lab Results 11/06/20 Range/Units 18:04 Uric Acid 12.0 H (3.5-7.6) mg/dL - Radiology Data [facility] [address] [place] [address] XRay Report Signed Patient: LARISSA PHILLIPS MR#: [id number] : 1970 Acct:[id number] Age/Sex: 50 / M ADM Date: 11/06/20 Loc: ED Attending Dr: Ordering Physician: HARPAL PAREDES NP Date of Service: 11/06/20 Procedure(s): XR hand 3+V RT Accession Number(s): [id number] cc: HARPAL PAREDES NP Fluoro Time In Minutes: Right hand-3 views INDICATION: right hand pain. Right hand swelling for the past few days, no reported injury COMPARISON: Right hand radiograph from 08/22/2020 IMPRESSION: No acute osseous abnormality. Mild soft tissue swelling is seen overlying some of the IP joints where there is underlying mild to moderately advanced degenerative change. There is also scattered subchondral cyst formation. Degenerative changes are also seen in the carpal bones. Normal alignment. There is an old healed little finger metacarpal fracture. Signer Name: Madhu Garcia MD Signed: 11/06/2020 6:31 PM Workstation Name: [id number] Transcribed By: JW Dictated By: Madhu Gracia MD Electronically Authenticated By: Madhu Garcia MD Signed Date/Time: 11/06/201830 DD/ 29 TD/TT: - Medical Decision Making This is a 50-year-old male that presents with gout flare. Patient is stable and was examined by me. X-ray has been obtained and dictated by the radiologist. Patient is notified of the x-ray report with noted by the patient. Patient does have normal gait with with some tenderness. No ecchymosis. no joint redness or swelling. Not warm to touch. No signs of cellulites present. Patient received received colchicine and Decadron IM. Patient be discharged with colchicine and naproxen. At time of discharge, the patient does not seem toxic or ill in appearance. No acute signs of distress noted. Patient agrees to discharge treatment plan of care. No further questions noted by the patient. Critical care attestation.: If time is entered above; I have spent that time in minutes in the direct care of this critically ill patient, excluding procedure time. ED Disposition Clinical Impression: Gout flare Qualifiers: Gout site: hand Gout etiology: unspecified cause Laterality: right Qualified Code(s): M10.9 - Gout, unspecified Disposition: HOME / SELF CARE / HOMELESS Is pt being admited?: No Does the pt Need Aspirin: No Condition: Stable Instructions: Low-Purine Eating Plan Additional Instructions: Follow-up with a primary care doctor in 3-5 days or if symptoms worsen and continue return to emergency room as soon as possible. Prescriptions: Colchicine 0.6 mg PO ONCE #1 tablet Naproxen 500 mg PO Q8H PRN #12 tablet PRN Reason: Pain , Severe (7-10) Referrals: PRIMARY [facility] [Referring] - 3-5 Days FLAVIO MONTILLA MD [Staff Physician] - 3-5 Days
== END 2020-11-06 22:00 | disposition home or self-care (01) ==
LOC: ED 15:02
DX: M10.9 Gout, unspecified (principal); E11.8 Type 2 diabetes mellitus with unspecified complications
CPT/HCPCS: 36415; 73130; 84550; 96374; 99283; J1100

== ENCOUNTER 2020-11-20 08:39 | Emergency (ER) | payer OTHER ==
[2020-11-20 08:47] VITALS: BP 131/91
--- NOTE | 2020-11-20 11:22 | Emergency Department Report ---
ED Fall HPI - General Chief Complaint: Extremity Injury, Lower Stated Complaint: L ANKLE INJURY Time Seen by Provider: 11/20/20 10:19 Source: patient Mode of arrival: Ambulatory - History of Present Illness Initial Comments: Patient is a 50-year-old male presents emergency room complaints of a fall that occurred yesterday. He reports that he fell off a ladder and felt a popping sensation in his left ankle. He has been having the left ankle and left foot pain since yesterday. He is ambulatory but has pain with ambulation. He states he has a history of a fracture in this ankle which he states he had to have a surgical fixation. Patient states he is also been having some lower back discomfort. He denies hitting his head, loss of consciousness, neck pain, vomiting, vision changes, numbness, weakness, bowel or bladder incontinence, any other injury. pt denies any other past medical history. No allergies medications. - Related Data Previous Rx's Medication Instructions Recorded Last Taken Type Acetaminophen/Codeine [Tylenol 1 tab PO Q8HR PRN #7 tab 03/07/20 Unknown Rx /Codeine # 3 tab] Ibuprofen [Motrin 600 MG tab] 600 mg PO Q8H PRN #14 tablet 03/07/20 Unknown Rx Insulin NPH Hum/Reg Insulin Hm 15 unit SQ BID #1 ml 05/28/20 Unknown Rx [Relion Novolin 70-30 Vial] metFORMIN [Glucophage] 500 mg PO BID #60 tablet 05/28/20 Unknown Rx Ketorolac [Toradol] 10 mg PO Q6H PRN #14 tablet 08/22/20 Unknown Rx traMADoL [Ultram] 50 mg PO Q6HR PRN #14 tablet 08/22/20 Unknown Rx Colchicine 0.6 mg PO UNK #9 capsule 10/11/20 Unknown Rx Indomethacin 50 mg PO Q8H 5 Days capsule 10/11/20 Unknown Rx Colchicine 0.6 mg PO ONCE #1 tablet 11/06/20 Unknown Rx Naproxen 500 mg PO Q8H PRN #12 tablet 11/06/20 Unknown Rx Ibuprofen [Motrin 600 MG tab] 600 mg PO Q8H PRN #14 tablet 11/20/20 Unknown Rx traMADoL [Ultram 50 MG tab] 50 mg PO Q6HR PRN #12 tablet 11/20/20 Unknown Rx Allergies Allergy/AdvReac Type Severity Reaction Status Date / Time No Known Allergies Allergy Verified 11/20/20 08:45 ED Review of Systems ROS: Stated complaint: L ANKLE INJURY Other details as noted in HPI Comment: All other systems reviewed and negative ED Past Medical Hx - Past Medical History Hx Diabetes: Yes - Surgical History Additional Surgical History: left ankle surgery - Social History Smoking Status: Never Smoker Substance Use Type: None - Medications Home Medications: Home Medications Medication Instructions Recorded Confirmed Last Taken Type Acetaminophen/Codeine [Tylenol 1 tab PO Q8HR PRN #7 tab 03/07/20 05/26/20 Unknown Rx /Codeine # 3 tab] Ibuprofen [Motrin 600 MG tab] 600 mg PO Q8H PRN #14 tablet 03/07/20 05/26/20 Unknown Rx Insulin NPH Hum/Reg Insulin Hm 15 unit SQ BID #1 ml 05/28/20 Unknown Rx [Relion Novolin 70-30 Vial] metFORMIN [Glucophage] 500 mg PO BID #60 tablet 05/28/20 Unknown Rx Ketorolac [Toradol] 10 mg PO Q6H PRN #14 tablet 08/22/20 Unknown Rx traMADoL [Ultram] 50 mg PO Q6HR PRN #14 tablet 08/22/20 Unknown Rx Colchicine 0.6 mg PO UNK #9 capsule 10/11/20 Unknown Rx Indomethacin 50 mg PO Q8H 5 Days capsule 10/11/20 Unknown Rx Colchicine 0.6 mg PO ONCE #1 tablet 11/06/20 Unknown Rx Naproxen 500 mg PO Q8H PRN #12 tablet 11/06/20 Unknown Rx Ibuprofen [Motrin 600 MG tab] 600 mg PO Q8H PRN #14 tablet 11/20/20 Unknown Rx traMADoL [Ultram 50 MG tab] 50 mg PO Q6HR PRN #12 tablet 11/20/20 Unknown Rx ED Physical Exam - General Limitations: No Limitations General appearance: alert, in no apparent distress - Head Head exam: Present: atraumatic, normocephalic - Eye Eye exam: Present: normal appearance, PERRL, EOMI. Absent: periorbital s welling, periorbital tenderness - ENT ENT exam: Present: mucous membranes moist - Neck Neck exam: Present: normal inspection, full ROM. Absent: tenderness, meningismus - Respiratory Respiratory exam: Present: normal lung sounds bilaterally. Absent: respiratory distress, wheezes, rales, rhonchi, stridor, chest wall tenderness, accessory muscle use, decreased breath sounds, prolonged expiratory - Cardiovascular Cardiovascular Exam: Present: regular rate, normal rhythm, normal heart sounds. Absent: systolic murmur, diastolic murmur, rubs, gallop - Extremities Exam Extremities exam: Present: other (healed surgical scar to the left ankle, there is mild edema to the left ankle, ttp to the left medial ankle, ttp to the dorsal foot, FROM of the LLE, neurovascularly intact) - Back Exam Back exam: Present: normal inspection, full ROM, paraspinal tenderness (bilateral lumbar), vertebral tenderness (lumbar, no step offs, no deformities, no ecchymosis, no edema ) - Neurological Exam Neurological exam: Present: alert, oriented X3, CN II-XII intact, normal gait. Absent: motor sensory deficit - Psychiatric Psychiatric exam: Present: normal affect, normal mood - Skin Skin exam: Present: warm, dry, intact ED Course Vital Signs 11/20/20 08:44 Temperature 98.3 F Pulse Rate 89 Respiratory 14 Rate Blood Pressure 131/91 [Left] O2 Sat by Pulse 99 Oximetry ED Medical Decision Making - Radiology Data Radiology results: report reviewed Ordering Physician: SAMMY PINEDA Date of Service: 11/20/20 Procedure(s): XR ankle 3+V LT Accession Number(s): [id number] cc: SAMMY PINEDA Fluoro Time In Minutes: Left foot radiograph, 3 views. Left ankle radiograph, 3 views. HISTORY: Fall COMPARISON: None FINDINGS: Left foot: No acute fracture or malalignment. Mild scattered interphalangeal joint osteoarthritis. Lisfranc interval is preserved. Soft tissues are unremarkable. Left ankle: Lateral fibular fixation plate and screw construct with additional interfragmentary screw and 2 partially threaded cannulated medial malleolus is noted. No evidence of hardware complication. Marked osteoarthritis of the ankle joint, preferentially involving the lateral compartment. There is also moderate osteoarthritis of the posterior subtalar joint. No evidence of acute fracture or malalignment. No focal soft tissue abnormality. IMPRESSION: 1. 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 2. No acute abnormality of the left ankle or foot. Signer Name: Clementine Barth MD Signed: 11/20/2020 11:21 AM Workstation Name: [id number] Transcribed By: SHAY Dictated By: CLEMENTINE BARTH MD Electronically Authenticated By: CLEMENTINE BARTH MD Signed Date/Time: 11/20/20 1121 DD/ 1111 TD/TT: Ordering Physician: SAMMY PINEDA Date of Service: 11/20/20 Procedure(s): XR spine lumbosacral 2-3V Accession Number(s): [id number] cc: SAMMY PINEDA Fluoro Time In Minutes: XR spine lumbosacral 2-3V HISTORY: fall from ladder, low back pain COMPARISON: None. TECHNIQUE: 3 view(s) of the lumbar spine obtained. FINDINGS: Vertebrae: Normal alignment. Vertebral body heights are preserved. There is irregularity of the sacrum at S3. Spondylosis:Disc space heights are preserved. IMPRESSION: Irregularity at S3 could represent fracture. Correlate clinically and if indicated can obtain a CT. Signer Name: Eliu Villa MD Signed: 11/20/2020 11:21 AM Workstation Name: [id number] Transcribed By: CAMPBELL Dictated By: Eliu Villa MD Electronically Authenticated By: Eliu Villa MD Signed Date/Time: 11/20/20 1121 DD/ 1113 TD/TT: Ordering Physician: SAMMY PINEDA Date of Service: 11/20/20 Procedure(s): CT lumbar spine wo con Accession Number(s): [id number] cc: SAMMY PINEDA CT lumbar spine wo con INDICATION / CLINICAL INFORMATION: 50 years Male; fall off ladder, possible fracture on XR, low back. TECHNIQUE: Axial CT images of the lumbar spine were obtained. Sagittal and coronal reformatted images were produced. All CT scans at this location are performed using CT dose reduction for ALARA by means of automated exposure control. COMPARISON: None available. FINDINGS: POST-SURGICAL CHANGES: None. ALIGNMENT: No significant abnormality. VERTEBRAE: No signs of fracture. Vertebral bodies are grossly normal in height throughout. Specifically, there is no evidence of fracture at S3. Mild osseous foraminal narrowing seen on the right at L4-5 and L5-S1. No significant sequela appreciated. Degenerative changes are seen in the costovertebral joints bilaterally at T11- left greater than right. INTERVERTEBRAL DISCS: No significant abnormality. PARASPINAL SOFT TISSUES: No significant abnormality. ADDITIONAL FINDINGS: Atherosclerotic disease seen in the aorta and its branches. IMPRESSION: 1. No signs of acute bony trauma to the lumbar spine. Signer Name: Matt Franklin MD, III Signed: 11/20/2020 12:03 PM Workstation Name: [id number] Transcribed By: HR Dictated By: Matt Franklin MD Electronically Authenticated By: Matt Franklin MD Signed Date/Time: 11/20/20 1203 DD/ 1200 TD/TT: Print - Medical Decision Making Patient is a 50-year-old male presents emergency room complaints of a fall that occurred yesterday. He reports that he fell off a ladder and felt a popping sensation in his left ankle. He has been having the left ankle and left foot pain since yesterday. He is ambulatory but has pain with ambulation. He states he has a history of a fracture in this ankle which he states he had to have a surgical fixation. Patient states he is also been having some lower back discomfort. He denies hitting his head, loss of consciousness, neck pain, vomiting, vision changes, numbness, weakness, bowel or bladder incontinence, any other injury. pt denies any other past medical history. No allergies medications. Vitals are stable. On exam:healed surgical scar to the left ankle, there is mild edema to the left ankle, ttp to the left medial ankle, ttp to the dorsal foot, FROM of the LLE, neurovascularly intact, bilateral lumbar and mild midline lumbar tenderness outpatient, no step-offs, no deformities, no focal neuro deficit, patient is ambulatory. XR left ankle and foot: 1. 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 2. No acute abnormality of the left ankle or foot. XR lumbar spine: Irregularity at S3 could represent fracture. Correlate clinically and if indicated can obtain a CT. CT lumbar spine: 1. No signs of acute bony trauma to the lumbar spine. Discussed all results with patient and answer questions. Patient placed in ankle stirrup splint and given crutches and remained neurovascularly intact. Patient given prescription for medications. Advised patient Please take medication as prescribed. Follow-up with a primary care doctor. Follow-up with orthopedic doctor. Return to emergency room for any new or worsening symptoms. Critical care attestation.: If time is entered above; I have spent that time in minutes in the direct care of this critically ill patient, excluding procedure time. ED Disposition Clinical Impression: Left foot pain, Arthritis of ankle Fall Qualifiers: Encounter type: initial encounter Qualified Code(s): W19.XXXA - Unspecified fall, initial encounter Left ankle pain Qualifiers: Chronicity: acute Qualified Code(s): M25.572 - Pain in left ankle and joints of left foot Low back pain Qualifiers: Chronicity: acute Back pain laterality: midline Sciatica presence: without sciatica Qualified Code(s): M54.5 - Low back pain Disposition: 01 HOME / SELF CARE / HOMELESS Is pt being admited?: No Does the pt Need Aspirin: No Condition: Stable Additional Instructions: Please take medication as prescribed. Follow-up with a primary care doctor. Follow-up with orthopedic doctor. Return to emergency room for any new or worsening symptoms. Prescriptions: Ibuprofen [Motrin 600 MG tab] 600 mg PO Q8H PRN #14 tablet PRN Reason: Pain traMADoL [Ultram 50 MG tab] 50 mg PO Q6HR PRN #12 tablet PRN Reason: Pain Referrals: PRIMARY CAREMD [Primary Care Provider] - 2-[address] [facility] [Provider Group] - 2-3 Days MAHNAZ BAEZA MD [Staff Physician] - 2-3 Days Forms: Work/School Release Form(ED) Time of Disposition: 12:12 Print Language: ROMANIAN
--- NOTE | 2020-11-20 11:25 | XRay Report ---
Left foot radiograph, 3 views. Left ankle radiograph, 3 views. HISTORY: Fall COMPARISON: None FINDINGS: Left foot: No acute fracture or malalignment. Mild scattered interphalangeal joint osteoarthritis. Li sfranc interval is preserved. Soft tissues are unremarkable. Left ankle: Lateral fibular fixation plate and screw construct with additional interfragmentary screw and 2 partially threaded cannulated medial malleolus is noted. No evidence of hardware complication. Marked osteoarthritis of the ankle joint, preferentially involving the lateral compartment. There is also moderate osteoarthritis of the posterior subtalar joint. No evidence of acute fracture or malal ignment. No focal soft tissue abnormality. IMPRESSION: 1. Marked posttraumatic osteoarthritis of the ankle and moderate osteoarthritis of the posterior subt alar joints. 2. No acute abnormality of the left ankle or foot. Signer Name: Chandler Barth MD Signed: 11/20/2020 11:21 AM Workstation Name: [id number]
--- NOTE | 2020-11-20 11:25 | XRay Report ---
XR spine lumbosacral 2-3V HISTORY: fall from ladder, low back pain COMPARISON: None. TECHNIQUE: 3 view(s) of the lumbar spine obtained. FINDINGS: Vertebrae: Normal alignment. Vertebral body heights are preserved. There is irregularity of the sac rum at S3. Spondylosis:Disc space heights are preserved. IMPRESSION: Irregularity at S3 could represent fracture. Correlate clinically and if indicated can obtain a CT. Signer Name: Eliu Villa MD Signed: 11/20/2020 11:21 AM Workstation Name: [id number]
--- NOTE | 2020-11-20 12:07 | Cat Scan Report ---
CT lumbar spine wo con INDICATION / CLINICAL INFORMATION: 50 years Male; fall off ladder, possible fracture on XR, low back. TECHNIQUE: Axial CT images of the lumbar spine were obtained. Sagittal and coronal reformatted images were prod uced. All CT scans at this location are performed using CT dose reduction for ALARA by means of autom ated exposure control. COMPARISON: None available. FINDINGS: POST-SURGICAL CHANGES: None. ALIGNMENT: No significant abnormality. VERTEBRAE: No signs of fracture. Vertebral bodies are grossly normal in height throughout. Specifical ly, there is no evidence of fracture at S3. Mild osseous foraminal narrowing seen on the right at L4-5 and L5-S1. No significant sequela apprecia gee. Degenerative changes are seen in the costovertebral joints bilaterally at N10-eytk greater than right . INTERVERTEBRAL DISCS: No significant abnormality. PARASPINAL SOFT TISSUES: No significant abnormality. ADDITIONAL FINDINGS: Atherosclerotic disease seen in the aorta and its branches. IMPRESSION: 1. No signs of acute bony trauma to the lumbar spine. Signer Name: Matt Franklin MD, III Signed: 11/20/2020 12:03 PM Workstation Name: [id number]
== END 2020-11-20 13:18 | disposition home or self-care (01) ==
LOC: ED 08:39
DX: M19.072 Primary osteoarthritis, left ankle and foot (principal); M54.5 Low back pain; M25.572 Pain in left ankle and joints of left foot; E11.9 Type 2 diabetes mellitus without complications; Z98.890 Other specified postprocedural states; Z79.899 Other long term (current) drug therapy
CPT/HCPCS: 72100; 72131

== ENCOUNTER 2021-01-22 04:16 | Emergency (ER) | payer SELFPAY ==
[2021-01-22 04:24] VITALS: BP 139/101
[2021-01-22] MEDS ORDERED: HYDROcodone/ACETAMINOPHEN 5-325 MG TAB PO ONE (04:45)
[2021-01-22] MEDS ORDERED: KETOROLAC 30 MG/1 ML INJ IM ONE (04:45)
[2021-01-22] MEDS ORDERED: predniSONE 20 MG TAB PO ONE (04:45)
[2021-01-22] MEDS ORDERED: ONDANSETRON 4 MG ODT TAB PO ONE (04:45)
--- NOTE | 2021-01-22 05:13 | Emergency Department Report ---
ED Extremity Problem HPI - General Chief complaint: Extremity Injury, Upper Stated complaint: SWOLLEN ELBOW/HAND Source: patient Mode of arrival: Ambulatory Limitations: No Limitations - History of Present Illness Initial comments: Patient is a 50-year-old -[place]ish male with a history of gout and xmx-wqflaue-husmxybuj diabetes who presents to the ED with complaint of acute onset persistent severe nontraumatic left hand and wrist pain as well as left elbow pain and swelling for the last 1 week, worse in the last 3 days. Patient admits to drinking alcohol and eating red meat regularly. Patient denies numbness and tingling or weakness of left arm, dizziness, syncope, chest pain, shortness of breath, fever, chills, fall, traumatic injury or heavy lifting. MD Complaint: extremity pain (Left wrist, left hand and left elbow pain and swelling), extremity swelling (Left wrist and hand and elbow swelling), joint swelling, joint paint (Left elbow and left hand pain and swelling), other (History of chronic gout) -: Sudden, week(s) (1) Location: left, elbow, other (Left wrist and left hand pain and swelling) History of Same: Yes (History of chronic gouty arthropathy) -: Yes arthralgia Severity scale (0 -10): 8 Quality: aching, sharp Consistency: constant Improves with: nothing Worsens with: weight bearing, palpation Associated Symptoms: denies other symptoms, arthralgias (Left wrist, left hand and left elbow pain with swelling). denies: chest pain, shortness of breath, fever, myalgias, rash - Related Data Previous Rx's Medication Instructions Recorded Last Taken Type Acetaminophen/Codeine [Tylenol 1 tab PO Q8HR PRN #7 tab 03/07/20 Unknown Rx /Codeine # 3 tab] Ibuprofen [Motrin 600 MG tab] 600 mg PO Q8H PRN #14 tablet 03/07/20 Unknown Rx Insulin NPH Hum/Reg Insulin Hm 15 unit SQ BID #1 ml 05/28/20 Unknown Rx [Relion Novolin 70-30 Vial] metFORMIN [Glucophage] 500 mg PO BID #60 tablet 05/28/20 Unknown Rx Ketorolac [Toradol] 10 mg PO Q6H PRN #14 tablet 08/22/20 Unknown Rx traMADoL [Ultram] 50 mg PO Q6HR PRN #14 tablet 08/22/20 Unknown Rx Colchicine 0.6 mg PO UNK #9 capsule 10/11/20 Unknown Rx Colchicine 0.6 mg PO ONCE #1 tablet 11/06/20 Unknown Rx Naproxen 500 mg PO Q8H PRN #12 tablet 11/06/20 Unknown Rx Ibuprofen [Motrin 600 MG tab] 600 mg PO Q8H PRN #14 tablet 11/20/20 Unknown Rx traMADoL [Ultram 50 MG tab] 50 mg PO Q6HR PRN #12 tablet 11/20/20 Unknown Rx Colchicine [Colcrys] 0.6 mg PO BID #30 tab 01/22/21 Unknown Rx Indomethacin 50 mg PO Q8H PRN 5 Days #30 capsule 01/22/21 Unknown Rx allopurinoL [Zyloprim] 100 mg PO QDAY #30 tablet 01/22/21 Unknown Rx predniSONE [Deltasone] 20 mg PO QDAY #40 tab 01/22/21 Unknown Rx Allergies Allergy/AdvReac Type Severity Reaction Status Date / Time No Known Allergies Allergy Verified 11/20/20 08:45 ED Review of Systems ROS: Stated complaint: SWOLLEN ELBOW/HAND Other details as noted in HPI Constitutional: denies: chills, fever Eyes: denies: eye pain, eye discharge, vision change ENT: denies: ear pain, throat pain Respiratory: denies: cough, shortness of breath, wheezing Cardiovascular: denies: chest pain, palpitations Endocrine: no symptoms reported Gastrointestinal: denies: abdominal pain, nausea, diarrhea Genitourinary: denies: urgency, dysuria Musculoskeletal: joint swelling, arthralgia (Left wrist pain, left hand pain and left elbow pain and swelling). denies: back pain Skin: denies: rash, lesions Neurological: denies: headache, weakness, paresthesias Psychiatric: denies: anxiety, depression Hematological/Lymphatic: denies: easy bleeding, easy bruising ED Past Medical Hx - Past Medical History Hx Diabetes: Yes (Type 2) - Surgical History Past Surgical History?: Yes Additional Surgical History: left ankle surgery - Social History Smoking Status: Never Smoker Substance Use Type: None - Medications Home Medications: Home Medications Medication Instructions Recorded Confirmed Last Taken Type Acetaminophen/Codeine [Tylenol 1 tab PO Q8HR PRN #7 tab 03/07/20 05/26/20 Unknown Rx /Codeine # 3 tab] Ibuprofen [Motrin 600 MG tab] 600 mg PO Q8H PRN #14 tablet 03/07/20 05/26/20 Unknown Rx Insulin NPH Hum/Reg Insulin Hm 15 unit SQ BID #1 ml 05/28/20 Unknown Rx [Relion Novolin 70-30 Vial] metFORMIN [Glucophage] 500 mg PO BID #60 tablet 05/28/20 Unknown Rx Ketorolac [Toradol] 10 mg PO Q6H PRN #14 tablet 08/22/20 Unknown Rx traMADoL [Ultram] 50 mg PO Q6HR PRN #14 tablet 08/22/20 Unknown Rx Colchicine 0.6 mg PO UNK #9 capsule 10/11/20 Unknown Rx Colchicine 0.6 mg PO ONCE #1 tablet 11/06/20 Unknown Rx Naproxen 500 mg PO Q8H PRN #12 tablet 11/06/20 Unknown Rx Ibuprofen [Motrin 600 MG tab] 600 mg PO Q8H PRN #14 tablet 11/20/20 Unknown Rx traMADoL [Ultram 50 MG tab] 50 mg PO Q6HR PRN #12 tablet 11/20/20 Unknown Rx Colchicine [Colcrys] 0.6 mg PO BID #30 tab 01/22/21 Unknown Rx Indomethacin 50 mg PO Q8H PRN 5 Days #30 capsule 01/22/21 Unknown Rx allopurinoL [Zyloprim] 100 mg PO QDAY #30 tablet 01/22/21 Unknown Rx predniSONE [Deltasone] 20 mg PO QDAY #40 tab 01/22/21 Unknown Rx ED Physical Exam - General Limitations: No Limitations General appearance: alert, in no apparent distress - Head Head exam: Present: atraumatic, normocephalic, normal inspection - Eye Eye exam: Present: normal appearance, PERRL, EOMI Pupils: Present: normal accommodation - ENT ENT exam: Present: normal exam, normal orophraynx, mucous membranes moist, TM's normal bilaterally, normal external ear exam - Neck Neck exam: Present: normal inspection, full ROM - Respiratory Respiratory exam: Present: normal lung sounds bilaterally. Absent: respiratory distress, wheezes, rales, rhonchi, chest wall tenderness, accessory muscle use, decreased breath sounds - Cardiovascular Cardiovascular Exam: Present: regular rate, normal rhythm, normal heart sounds. Absent: systolic murmur, diastolic murmur, rubs, gallop - GI/Abdominal GI/Abdominal exam: Present: soft, normal bowel sounds. Absent: tenderness, guarding, rebound, hyperactive bowel sounds, hypoactive bowel sounds, mass - Extremities Exam Extremities exam: Present: normal inspection, full ROM, tenderness (Palpable left wrist tenderness, left hand tenderness and left elbow tenderness with mild swelling), normal capillary refill, joint swelling (Left elbow, left wrist and left hand mild swelling) - Back Exam Back exam: Present: normal inspection, full ROM. Absent: tenderness, CVA tenderness (R), muscle spasm, vertebral tenderness - Neurological Exam Neurological exam: Present: alert, oriented X3, CN II-XII intact, normal gait, reflexes normal - Psychiatric Psychiatric exam: Present: normal affect, normal mood - Skin Skin exam: Present: warm, dry, intact, normal color. Absent: rash ED Course Vital Signs 01/22/21 04:22 Temperature 98.0 F Pulse Rate 89 Respiratory 17 Rate Blood Pressure 139/101 [Left] O2 Sat by Pulse 97 Oximetry ED Medical Decision Making - Medical Decision Making This is a 50-year-old -[place] male with a history of gout and wbq-oxaeabv-kpckhvcqr diabetes who presents to the ED with complaint of acute onset persistent severe nontraumatic left hand and wrist pain as well as left elbow pain and swelling for the last 1 week, worse in the last 3 days. Patient admits to drinking alcohol and eating red meat regularly. In the ED, patient is alert and oriented x3 and is not in any distress. Patient was treated in the ED for pain and discharged home on pain medications and advised to follow-up with his primary care physician in 5 to 7 days for reevaluation. - Differential Diagnosis Gout; osteoarthritis; tendinitis; muscle strain; Critical care attestation.: If time is entered above; I have spent that time in minutes in the direct care of this critically ill patient, excluding procedure time. ED Disposition Clinical Impression: Pain and swelling of left wrist, Chronic gouty arthropathy Disposition: HOME / SELF CARE / HOMELESS Is pt being admited?: No Does the pt Need Aspirin: No Condition: Stable Instructions: Wrist Pain, Adult, [id number]-[id number], Joint Pain, Fxcn-mx-Iruw, Uric Acid Nephropathy, Low-Purine Eating Plan Additional Instructions: Take medications with food, drink plenty of fluids and follow-up with your primary care physician in 5 to 7 days for reevaluation. Return to the ED immediately if symptoms get worse. Prescriptions: Colchicine [Colcrys] 0.6 mg PO BID #30 tab predniSONE [Deltasone] 20 mg PO QDAY #40 tab Indomethacin 50 mg PO Q8H PRN 5 Days #30 capsule PRN Reason: Pain , Severe (7-10) allopurinoL [Zyloprim] 100 mg PO QDAY #30 tablet Referrals: FLAVIO MONTILLA MD [Staff Physician] - 3-5 Days Forms: Work/School Release Form(ED) Time of Disposition: 05:17 Print Language: ANDORRAN
[2021-01-22] MEDS ORDERED: COLCHICINE 0.6 MG TAB PO ONE (05:45)
== END 2021-01-22 05:40 | disposition home or self-care (01) ==
LOC: ED 04:16
DX: M10.9 Gout, unspecified (principal); E11.9 Type 2 diabetes mellitus without complications
CPT/HCPCS: 96372; 99282; J1885; J7512; J3490; Q0162

== ENCOUNTER 2021-01-30 08:46 | Emergency (ER) | payer SELFPAY ==
[2021-01-30 09:46] VITALS: BP 134/81
[2021-01-30] MEDS ORDERED: dexAMETHasone 4 MG/ML VIAL IM ONE (09:47)
--- NOTE | 2021-01-30 09:48 | Emergency Department Report ---
ED General Adult HPI - General Chief complaint: Pain General Stated complaint: LT ELBOW/KNEE SWOLLEN PUI?: No Time Seen by Provider: 01/30/21 09:47 Source: patient Mode of arrival: Ambulatory Limitations: No Limitations - History of Present Illness Initial comments: 50 YO COMES TO ER CO LEFT KNEE AND ELBOW PAIN. HE HAS A/C GOUT. PT IS CONSISTENT WITH HIS GOUT. HE HAS NO HOME MEDS AT THIS TIME FOR GOUT. NO TRAUMA OR FALL. OTHERWISE IN HIS USUAL STATE OF HEALTH -: Gradual, days(s) Consistency: constant Improves with: none Worsens with: none Associated Symptoms: denies other symptoms - Related Data Previous Rx's Medication Instructions Recorded Last Taken Type Insulin NPH Hum/Reg Insulin Hm 15 unit SQ BID #1 ml 05/28/20 Unknown Rx [Relion Novolin 70-30 Vial] metFORMIN [Glucophage] 500 mg PO BID #60 tablet 05/28/20 Unknown Rx Colchicine 0.6 mg PO ONCE #1 tablet 01/30/21 Unknown Rx Indomethacin 50 mg PO Q8H PRN 5 Days #30 capsule 01/30/21 Unknown Rx allopurinoL [Zyloprim] 100 mg PO QDAY #30 tablet 01/30/21 Unknown Rx predniSONE [Deltasone] 20 mg PO QDAY #40 tab 01/30/21 Unknown Rx Allergies Allergy/AdvReac Type Severity Reaction Status Date / Time No Known Allergies Allergy Verified 11/20/20 08:45 ED Review of Systems ROS: Stated complaint: LT ELBOW/KNEE SWOLLEN Other details as noted in HPI Comment: All other systems reviewed and negative ED Past Medical Hx - Past Medical History Previous Medical History?: Yes Hx Diabetes: Yes (Type 2) Additional medical history: GOUT - Surgical History Past Surgical History?: Yes Additional Surgical History: left ankle surgery - Family History Family history: no significant - Social History Smoking Status: Never Smoker Substance Use Type: None - Medications Home Medications: Home Medications Medication Instructions Recorded Confirmed Last Taken Type Insulin NPH Hum/Reg Insulin Hm 15 unit SQ BID #1 ml 05/28/20 Unknown Rx [Relion Novolin 70-30 Vial] metFORMIN [Glucophage] 500 mg PO BID #60 tablet 05/28/20 Unknown Rx Colchicine 0.6 mg PO ONCE #1 tablet 01/30/21 Unknown Rx Indomethacin 50 mg PO Q8H PRN 5 Days #30 capsule 01/30/21 Unknown Rx allopurinoL [Zyloprim] 100 mg PO QDAY #30 tablet 01/30/21 Unknown Rx predniSONE [Deltasone] 20 mg PO QDAY #40 tab 01/30/21 Unknown Rx ED Physical Exam - General Limitations: No Limitations General appearance: alert, in no apparent distress - Head Head exam: Present: atraumatic, normocephalic - Eye Eye exam: Present: normal appearance - ENT ENT exam: Present: mucous membranes moist - Neck Neck exam: Present: normal inspection - Respiratory Respiratory exam: Present: normal lung sounds bilaterally. Absent: respiratory distress - Cardiovascular Cardiovascular Exam: Present: regular rate, normal rhythm. Absent: systolic murmur, diastolic murmur, rubs, gallop - GI/Abdominal GI/Abdominal exam: Present: soft, normal bowel sounds - Rectal Rectal exam: Present: deferred - Extremities Exam Extremities exam: Present: normal inspection - Back Exam Back exam: Present: normal inspection - Neurological Exam Neurological exam: Present: alert, oriented X3 - Psychiatric Psychiatric exam: Present: normal affect, normal mood - Skin Skin exam: Present: warm, dry, intact, normal color. Absent: rash ED Course Vital Signs 01/30/21 09:45 Temperature 98.4 F Pulse Rate 87 Respiratory 16 Rate Blood Pressure 134/81 [Right] O2 Sat by Pulse 100 Oximetry ED Medical Decision Making - Medical Decision Making Vital Signs 01/30/21 09:45 Temperature 98.4 F Pulse Rate 87 Respiratory 16 Rate Blood Pressure 134/81 [Right] O2 Sat by Pulse 100 Oximetry MEDICATED WITH DECADRON IM IN ER DC HOME WITH RX FOR GOUT PT VERBALIZES UNDERSTANDING OF D/C PLAN OF CARE INCLUDING MED, DIET, ACTIVITY AND FOLLOW UP. - Differential Diagnosis A/C GOUT Critical care attestation.: If time is entered above; I have spent that time in minutes in the direct care of this critically ill patient, excluding procedure time. ED Disposition Clinical Impression: Chronic gouty arthropathy Disposition: 01 HOME / SELF CARE / HOMELESS Is pt being admited?: No Does the pt Need Aspirin: No Condition: Stable Instructions: Low-Purine Eating Plan Additional Instructions: CONTINUE YOUR DAILY MEDS MEDS ORDERED TODAY FOLLOW UP WITH PCP NEXT WEEK TO BE SURE YOU ARE GETTING BETTER REFERRAL BELOW Prescriptions: Colchicine 0.6 mg PO ONCE #1 tablet predniSONE [Deltasone] 20 mg PO QDAY #40 tab Indomethacin 50 mg PO Q8H PRN 5 Days #30 capsule PRN Reason: Pain , Severe (7-10) allopurinoL [Zyloprim] 100 mg PO QDAY #30 tablet Referrals: FLAVIO MONTILLA MD [Staff Physician] - 3-5 Days Time of Disposition: 09:50
== END 2021-01-30 10:29 | disposition home or self-care (01) ==
LOC: ED 08:46
DX: M1A.9XX0 Chronic gout, unspecified, without tophus (tophi) (principal); E11.9 Type 2 diabetes mellitus without complications
CPT/HCPCS: 96372; 99282; J1100

== ENCOUNTER 2021-02-23 17:41 | Emergency (ER) | payer SELFPAY ==
[2021-02-23] MEDS ORDERED: predniSONE 20 MG TAB PO ONE (21:35)
[2021-02-23] MEDS ORDERED: COLCHICINE 0.6 MG TAB PO ONE (21:35)
[2021-02-23] MEDS ORDERED: IBUPROFEN 600 MG TAB PO ONE (21:36)
[2021-02-23] MEDS ORDERED: ONDANSETRON 4 MG ODT TAB PO ONE (21:36)
[2021-02-23] MEDS ORDERED: oxyCODONE /ACETAMINOPHEN 5-325MG TAB PO ONE (21:36)
--- NOTE | 2021-02-23 22:03 | Emergency Department Report ---
ED Extremity Problem HPI - General Chief complaint: Extremity Injury, Lower Stated complaint: GOUT TO LEFT FOOT Source: patient Mode of arrival: Ambulatory Limitations: Physical Limitation - History of Present Illness Initial comments: Patient is a 50-year-old -Iranian male with a history of dwt-[id number]-vpqaixiyf diabetes and chronic gouty arthropathy who presented to [facility] ED with complaint of acute onset persistent left foot pain and swelling suspected to be due to flareup of his chronic recurrent gouty arthropathy for the last 1 week. Patient states that he has been taking sykr-jin-bjoauzl pain medications with no relief. Patient denies fall, traumatic injury, nausea, vomiting, chest pain or shortness of breath, fever, chills, cough, sore throat, low back pain or numbness and tingling or weakness of lower extremities bilaterally. MD Complaint: extremity pain (left foot pain and swelling), extremity swelling (left foot), joint swelling (left foot pain and swelling), joint paint (left foot sweling and pain), other (history of gouty arthropathy of left foot) -: Sudden, week(s) (1) Location: left, lower extremity (left foot pain and swelling) History of Same: Yes (chronic gouty athropathy) -: Yes arthralgia, No associated dyspnea, No associated chest pain Radiation: distal Severity scale (0 -10): 7 Quality: aching, sharp Consistency: constant Improves with: nothing Worsens with: weight bearing, walking, exertion, palpation Associated Symptoms: denies other symptoms, arthralgias (left foot pain and swelling). denies: chest pain, shortness of breath, fever, myalgias - Related Data Previous Rx's Medication Instructions Recorded Last Taken Type Insulin NPH Hum/Reg Insulin Hm 15 unit SQ BID #1 ml 05/28/20 Unknown Rx [Relion Novolin 70-30 Vial] metFORMIN [Glucophage] 500 mg PO BID #60 tablet 05/28/20 Unknown Rx Colchicine 0.6 mg PO ONCE #1 tablet 01/30/21 Unknown Rx Indomethacin 50 mg PO Q8H PRN 5 Days #30 capsule 01/30/21 Unknown Rx allopurinoL [Zyloprim] 100 mg PO QDAY #30 tablet 01/30/21 Unknown Rx Colchicine 0.6 mg PO DAILY #20 tablet 02/23/21 Unknown Rx Indomethacin 50 mg PO Q8H PRN #45 capsule 02/23/21 Unknown Rx predniSONE [Deltasone] 40 mg PO QDAY #10 tab 02/23/21 Unknown Rx traMADoL [Ultram] 50 mg PO Q6HR PRN #12 tablet 02/23/21 Unknown Rx Allergies Allergy/AdvReac Type Severity Reaction Status Date / Time No Known Allergies Allergy Verified 02/23/21 17:44 ED Review of Systems ROS: Stated complaint: GOUT TO LEFT FOOT Other details as noted in HPI Constitutional: denies: chills, fever Eyes: denies: eye pain, eye discharge, vision change ENT: denies: ear pain, throat pain Respiratory: denies: cough, shortness of breath, wheezing Cardiovascular: denies: chest pain, palpitations Endocrine: no symptoms reported Gastrointestinal: denies: abdominal pain, nausea, diarrhea Genitourinary: denies: urgency, dysuria Musculoskeletal: joint swelling (Left foot pain and swelling), arthralgia (Left foot pain and swelling). denies: back pain Skin: denies: rash, lesions Neurological: denies: headache, weakness, paresthesias Psychiatric: denies: anxiety, depression Hematological/Lymphatic: denies: easy bleeding, easy bruising ED Past Medical Hx - Past Medical History Hx Diabetes: Yes (Type 2) Additional medical history: GOUT - Surgical History Additional Surgical History: left ankle surgery - Social History Smoking Status: Never Smoker Substance Use Type: None - Medications Home Medications: Home Medications Medication Instructions Recorded Confirmed Last Taken Type Insulin NPH Hum/Reg Insulin Hm 15 unit SQ BID #1 ml 05/28/20 Unknown Rx [Relion Novolin 70-30 Vial] metFORMIN [Glucophage] 500 mg PO BID #60 tablet 05/28/20 Unknown Rx Colchicine 0.6 mg PO ONCE #1 tablet 01/30/21 Unknown Rx Indomethacin 50 mg PO Q8H PRN 5 Days #30 capsule 01/30/21 Unknown Rx allopurinoL [Zyloprim] 100 mg PO QDAY #30 tablet 01/30/21 Unknown Rx Colchicine 0.6 mg PO DAILY #20 tablet 02/23/21 Unknown Rx Indomethacin 50 mg PO Q8H PRN #45 capsule 02/23/21 Unknown Rx predniSONE [Deltasone] 40 mg PO QDAY #10 tab 02/23/21 Unknown Rx traMADoL [Ultram] 50 mg PO Q6HR PRN #12 tablet 02/23/21 Unknown Rx ED Physical Exam - General Limitations: Physical Limitation General appearance: alert, in no apparent distress - Head Head exam: Present: atraumatic, normocephalic, normal inspection - Eye Eye exam: Present: normal appearance, PERRL, EOMI Pupils: Present: normal accommodation - ENT ENT exam: Present: normal exam, normal orophraynx, mucous membranes moist, TM's normal bilaterally, normal external ear exam - Neck Neck exam: Present: normal inspection, full ROM - Respiratory Respiratory exam: Present: normal lung sounds bilaterally. Absent: respiratory distress, wheezes, rales, rhonchi, chest wall tenderness, accessory muscle use, prolonged expiratory - Cardiovascular Cardiovascular Exam: Present: regular rate, normal rhythm, normal heart sounds. Absent: systolic murmur, diastolic murmur, rubs, gallop - GI/Abdominal GI/Abdominal exam: Present: soft, normal bowel sounds. Absent: tenderness, guarding, hyperactive bowel sounds, hypoactive bowel sounds, organomegaly - Extremities Exam Extremities exam: Present: normal inspection, full ROM, tenderness (Palpable left foot tenderness with mild swelling and limited range of motion due to pain), normal capillary refill, joint swelling. Absent: pedal edema, calf tenderness - Back Exam Back exam: Present: normal inspection, full ROM. Absent: tenderness, CVA t enderness (R), CVA tenderness (L), muscle spasm, vertebral tenderness - Neurological Exam Neurological exam: Present: alert, oriented X3, CN II-XII intact, normal gait, reflexes normal - Psychiatric Psychiatric exam: Present: normal affect, normal mood - Skin Skin exam: Present: warm, dry, intact, normal color. Absent: rash ED Course Vital Signs 02/23/21 17:51 Temperature 97.3 F L Pulse Rate 88 Respiratory 20 Rate Blood Pressure 148/78 [Right] O2 Sat by Pulse 100 Oximetry ED Medical Decision Making - Medical Decision Making This is a 50-year-old -Iranian male with a history of lgx-zsgdncn-ozawtqjyl diabetes and chronic gouty arthropathy who presented to the ED with complaint of acute onset persistent left foot pain and swelling s uspected to be due to flareup of his chronic recurrent gouty arthropathy for the last 1 week. Patient states that he has been taking kypu-qzk-qsgziha pain medications with no relief. In the ED, patient is alert and oriented x3 and is not in any distress. Patient was treated for pain in the ED and was discharged home on pain medications and advised to follow-up with his primary care physician in 7 to 10 days for reevaluation. Patient is advised return to the ED immediately if symptoms get worse. - Differential Diagnosis Chronic gouty arthropathy; osteoarthritis; chronic pain syndrome Critical care attestation.: If time is entered above; I have spent that time in minutes in the direct care of this critically ill patient, excluding procedure time. ED Disposition Clinical Impression: Chronic gouty arthropathy Chronic pain Qualifiers: Chronic pain type: chronic pain syndrome Qualified Code(s): G89.4 - Chronic pain syndrome Disposition: HOME / SELF CARE / HOMELESS Is pt being admited?: No Does the pt Need Aspirin: No Condition: Stable Instructions: Low-Purine Eating Plan, Chronic Pain, Adult Additional Instructions: Take pain medication with food, drink plenty of fluids and follow-up with your primary care physician in 7 to 10 days for reevaluation. Return to the ED immediately if symptoms get worse. Prescriptions: Colchicine 0.6 mg PO DAILY #20 tablet predniSONE [Deltasone] 40 mg PO QDAY #10 tab Indomethacin 50 mg PO Q8H PRN #45 capsule PRN Reason: Pain , Severe (7-10) traMADoL [Ultram] 50 mg PO Q6HR PRN #12 tablet PRN Reason: Pain Referrals: [facility] [Provider Group] - 3-5 Days Time of Disposition: 22:09 Print Language: SIERRA LEONEAN
[2021-02-23 22:56] VITALS: BP 113/69
== END 2021-02-23 22:57 | disposition home or self-care (01) ==
LOC: ED 17:41
DX: M1A.9XX0 Chronic gout, unspecified, without tophus (tophi) (principal); G89.4 Chronic pain syndrome; E11.8 Type 2 diabetes mellitus with unspecified complications
CPT/HCPCS: 99282; J7512; J3490; Q0162

== ENCOUNTER 2021-03-15 12:02 | Emergency (ER) | payer SELFPAY ==
[2021-03-15 12:58] VITALS: BP 111/75
[2021-03-15] MEDS ORDERED: HYDROcodone/ACETAMINOPHEN 5-325 MG TAB PO ONE (14:19)
[2021-03-15] MEDS ORDERED: IBUPROFEN 800 MG TAB PO ONE (14:19)
[2021-03-15] MEDS ORDERED: COLCHICINE 0.6 MG TAB PO ONE (14:19)
--- NOTE | 2021-03-15 14:24 | Emergency Department Report ---
HPI - General Chief Complaint: Extremity Problem,Nontraumatic Time Seen by Provider: 03/15/21 14:12 - HPI HPI: Room 29 Patient is a 50-year-old male present with chief complaint of left elbow pain. Patient has a history of gout states 2 days ago developed pain and swelling in his left elbow feels 100% like his previous gout flareups. Patient denies any preceding trauma. Patient denies history of fever. Patient gives his pain a score of 9/10. Patient states he no longer has colchicine at home. ED Past Medical Hx - Past Medical History Hx Diabetes: Yes (Type 2) Additional medical history: GOUT - Surgical History Additional Surgical History: left ankle surgery - Family History Family history: no significant - Social History Smoking Status: Never Smoker Substance Use Type: None (Denies illicit drug use), Alcohol (Occasional) - Medications Home Medications: Home Medications Medication Instructions Recorded Confirmed Last Taken Type Insulin NPH Hum/Reg Insulin Hm 15 unit SQ BID #1 ml 05/28/20 Unknown Rx [Relion Novolin 70-30 Vial] metFORMIN [Glucophage] 500 mg PO BID #60 tablet 05/28/20 Unknown Rx Colchicine 0.6 mg PO ONCE #1 tablet 01/30/21 Unknown Rx Indomethacin 50 mg PO Q8H PRN 5 Days #30 capsule 01/30/21 Unknown Rx allopurinoL [Zyloprim] 100 mg PO QDAY #30 tablet 01/30/21 Unknown Rx Colchicine 0.6 mg PO DAILY #20 tablet 02/23/21 Unknown Rx Indomethacin 50 mg PO Q8H PRN #45 capsule 02/23/21 Unknown Rx predniSONE [Deltasone] 40 mg PO QDAY #10 tab 02/23/21 Unknown Rx traMADoL [Ultram] 50 mg PO Q6HR PRN #12 tablet 02/23/21 Unknown Rx Colchicine 0.6 mg PO QDAY #20 tablet 03/15/21 Unknown Rx HYDROcodone/APAP 5-325 [Wellpinit 1 - 2 each PO Q6HR PRN #14 tablet 03/15/21 Unknown Rx 5/325] Ibuprofen [Motrin 800 MG tab] 800 mg PO Q8HR PRN #20 tablet 03/15/21 Unknown Rx ED Review of Systems ROS: Stated complaint: GOUT Other details as noted in HPI Constitutional: no symptoms reported Eyes: denies: eye pain ENT: denies: throat pain Respiratory: no symptoms reported Cardiovascular: denies: chest pain Endocrine: no symptoms reported Gastrointestinal: denies: abdominal pain Genitourinary: denies: dysuria Musculoskeletal: arthralgia Neurological: denies: headache Physical Exam - Physical Exam Vital Signs: Vital Signs 03/15/21 12:55 Temperature 98.1 F Pulse Rate 90 Respiratory 14 Rate Blood Pressure 111/75 [Left] O2 Sat by Pulse 100 Oximetry Physical Exam: GENERAL: The patient is well-developed well-nourished male lying on stretcher not appearing to be in acute distress. [] HEENT: Normocephalic. Atraumatic. Extraocular motions are intact. Patient has moist mucous membranes. NECK: Trachea midline CHEST/LUNGS: There is no respiratory distress noted. HEART/CARDIOVASCULAR: Regular. There is no tachycardia. 2+ left radial pulse SKIN: There is edema and tenderness to the left elbow. No overlying erythema NEURO: The patient is awake, alert, and oriented. The patient is cooperative. The patient has no focal neurologic deficits. The patient has normal speech. GCS 15 MUSCULOSKELETAL: There is tenderness to the left elbow ED Course Vital Signs 03/15/21 12:55 Temperature 98.1 F Pulse Rate 90 Respiratory 14 Rate Blood Pressure 111/75 [Left] O2 Sat by Pulse 100 Oximetry ED Medical Decision Making - Differential Diagnosis Acute gouty arthritis Critical care attestation.: If time is entered above; I have spent that time in minutes in the direct care of this critically ill patient, excluding procedure time. ED Disposition Clinical Impression: Acute gout of left elbow Disposition: 01 HOME / SELF CARE / HOMELESS Is pt being admited?: No Does the pt Need Aspirin: No Condition: Stable Instructions: Low-Purine Eating Plan Additional Instructions: Return to the emergency department should you develop worsening symptoms, inabi lity to tolerate food or liquids, high fever or any other concerns Prescriptions: Colchicine 0.6 mg PO QDAY #20 tablet Ibuprofen [Motrin 800 MG tab] 800 mg PO Q8HR PRN #20 tablet PRN Reason: Pain, Moderate (4-6) HYDROcodone/APAP 5-325 [Wellpinit 5/325] 1 - 2 each PO Q6HR PRN #14 tablet PRN Reason: Pain Referrals: MAHNAZ COHN MD [Staff Physician] - 3-5 Days (Dr. Cohn is an orthopedic surgeon. Please follow-up with him for further evaluation) Time of Disposition: 14:26
== END 2021-03-15 14:45 | disposition home or self-care (01) ==
LOC: ED 12:02
DX: M10.9 Gout, unspecified (principal)
CPT/HCPCS: 99282

== ENCOUNTER 2021-04-11 19:08 | Emergency (ER) | payer SELFPAY ==
[2021-04-11 20:13] VITALS: BP 105/66
[2021-04-11] MEDS ORDERED: SODIUM CHLORIDE 0.9% 1000 ML 1,000 ML IV ONE (20:33)
[2021-04-11] MEDS ORDERED: KETOROLAC 30 MG/1 ML INJ IV ONE (20:34)
--- NOTE | 2021-04-11 21:11 | XRay Report ---
CHEST 1 VIEW 04/11/2021 8:52 PM INDICATION / CLINICAL INFORMATION: Chest Pain. COMPARISON: None available. FINDINGS: SUPPORT DEVICES: None. HEART / MEDIASTINUM: No significant abnormality. LUNGS / PLEURA: No significant pulmonary or pleural abnormality. No pneumothorax. ADDITIONAL FINDINGS: No significant additional findings. IMPRESSION: 1. No acute findings. Signer Name: Jeovany Nelson DO Signed: 04/11/2021 9:07 PM Workstation Name: [id number]
[2021-04-11 21:22] LABS: Basophils # (Auto) 0.1 K/mm3 (0.0-0.1); Basophils % (Auto) 0.8 % (0.0-1.8); Eosinophils % (Auto) 0.1 % (0.0-4.3); Hematocrit 34.7 % (35.5-45.6); Hemoglobin 11.4 gm/dl (11.8-15.2); Lymphocytes # (Auto) 1.1 K/mm3 (1.2-5.4); Lymphocytes % (Auto) 13.3 % (13.4-35.0); Mean Corpuscular HGB Conc 33 % (32-34); Mean Corpuscular Volume 82 fl (84-94); Monocytes # (Auto) 0.7 K/mm3 (0.0-0.8); Monocytes % (Auto) 8.3 % (0.0-7.3); Platelet Count 647 K/mm3 (140-440); Red Blood Count 4.22 M/mm3 (3.65-5.03); Red Cell Distribution Width 14.2 % (13.2-15.2)
[2021-04-11 21:23] LABS: Alanine Aminotransferase 33 units/L (7-56); Albumin 3.9 g/dL (3.9-5); BUN/Creatinine Ratio 16; Blood Urea Nitrogen 18 mg/dL (9-20); Calcium 10.3 mg/dL (8.4-10.2); Hemolysis Index 0; Uric Acid 8.4 mg/dL (3.5-7.6)
[2021-04-11 21:32] LABS: INR 1.05 (0.87-1.13)
[2021-04-11] MEDS ORDERED: MORPHINE 4 MG/1 ML INJ IV ONE (21:33)
[2021-04-11 23:09] LABS: Bilirubin,Urine NEG (Negative); Blood,Urine MOD (Negative); Color,Urine Yellow (Yellow); Mucus,Urine FEW /HPF; Protein,Urine <15 mg/dL mg/dL (Negative); Urobilinogen,Urine < 2.0 mg/dL (<2.0)
[2021-04-11 23:10] LABS: WBC,Urine < 1.0 /HPF (0.0-6.0)
--- NOTE | 2021-04-11 23:23 | Emergency Department Report ---
ED Extremity Problem HPI - General Chief complaint: Extremity Problem,Nontraumatic Stated complaint: GOUT IN KNEES Time Seen by Provider: 04/11/21 20:33 Source: patient Mode of arrival: Wheelchair Limitations: No Limitations - History of Present Illness MD Complaint: extremity pain, extremity swelling History of Same: No Severity scale (0 -10): 7 Quality: dull Improves with: nothing Worsens with: nothing - Related Data Previous Rx's Medication Instructions Recorded Last Taken Type Insulin NPH Hum/Reg Insulin Hm 15 unit SQ BID #1 ml 05/28/20 Unknown Rx [Relion Novolin 70-30 Vial] metFORMIN [Glucophage] 500 mg PO BID #60 tablet 05/28/20 Unknown Rx Colchicine 0.6 mg PO ONCE #1 tablet 01/30/21 Unknown Rx Indomethacin 50 mg PO Q8H PRN 5 Days #30 capsule 01/30/21 Unknown Rx allopurinoL [Zyloprim] 100 mg PO QDAY #30 tablet 01/30/21 Unknown Rx Colchicine 0.6 mg PO DAILY #20 tablet 02/23/21 Unknown Rx Indomethacin 50 mg PO Q8H PRN #45 capsule 02/23/21 Unknown Rx predniSONE [Deltasone] 40 mg PO QDAY #10 tab 02/23/21 Unknown Rx traMADoL [Ultram] 50 mg PO Q6HR PRN #12 tablet 02/23/21 Unknown Rx Colchicine 0.6 mg PO QDAY #20 tablet 03/15/21 Unknown Rx HYDROcodone/APAP 5-325 [Herlong 1 - 2 each PO Q6HR PRN #14 tablet 03/15/21 Unknown Rx 5/325] Ibuprofen [Motrin 800 MG tab] 800 mg PO Q8HR PRN #20 tablet 03/15/21 Unknown Rx Colchicine [Colcrys] 0.6 mg PO DAILY #14 tablet 04/11/21 Unknown Rx Ketorolac [Toradol] 10 mg PO Q6H PRN #14 04/11/21 Unknown Rx Allergies Allergy/AdvReac Type Severity Reaction Status Date / Time No Known Allergies Allergy Verified 03/15/21 12:58 ED Review of Systems ROS: Stated complaint: GOUT IN KNEES Other details as noted in HPI Constitutional: denies: chills, fever Eyes: denies: eye pain, eye discharge, vision change ENT: denies: ear pain, throat pain Respiratory: denies: cough, shortness of breath, wheezing Cardiovascular: denies: chest pain, palpitations Endocrine: no symptoms reported Gastrointestinal: denies: abdominal pain, nausea, diarrhea Genitourinary: denies: urgency, dysuria Musculoskeletal: denies: back pain, joint swelling, arthralgia Skin: denies: rash, lesions Neurological: denies: headache, weakness, paresthesias Psychiatric: denies: anxiety, depression Hematological/Lymphatic: denies: easy bleeding, easy bruising ED Past Medical Hx - Past Medical History Hx Diabetes: Yes (Type 2) Additional medical history: GOUT - Surgical History Additional Surgical History: left ankle surgery - Social History Smoking Status: Never Smoker Substance Use Type: None (Denies illicit drug use), Alcohol (Occasional) - Medications Home Medications: Home Medications Medication Instructions Recorded Confirmed Last Taken Type Insulin NPH Hum/Reg Insulin Hm 15 unit SQ BID #1 ml 05/28/20 Unknown Rx [Relion Novolin 70-30 Vial] metFORMIN [Glucophage] 500 mg PO BID #60 tablet 05/28/20 Unknown Rx Colchicine 0.6 mg PO ONCE #1 tablet 01/30/21 Unknown Rx Indomethacin 50 mg PO Q8H PRN 5 Days #30 capsule 01/30/21 Unknown Rx allopurinoL [Zyloprim] 100 mg PO QDAY #30 tablet 01/30/21 Unknown Rx Colchicine 0.6 mg PO DAILY #20 tablet 02/23/21 Unknown Rx Indomethacin 50 mg PO Q8H PRN #45 capsule 02/23/21 Unknown Rx predniSONE [Deltasone] 40 mg PO QDAY #10 tab 02/23/21 Unknown Rx traMADoL [Ultram] 50 mg PO Q6HR PRN #12 tablet 02/23/21 Unknown Rx Colchicine 0.6 mg PO QDAY #20 tablet 03/15/21 Unknown Rx HYDROcodone/APAP 5-325 [Herlong 1 - 2 each PO Q6HR PRN #14 tablet 03/15/21 Unknown Rx 5/325] Ibuprofen [Motrin 800 MG tab] 800 mg PO Q8HR PRN #20 tablet 03/15/21 Unknown Rx Colchicine [Colcrys] 0.6 mg PO DAILY #14 tablet 04/11/21 Unknown Rx Ketorolac [Toradol] 10 mg PO Q6H PRN #14 04/11/21 Unknown Rx ED Physical Exam - General Limitations: No Limitations General appearance: alert, in no apparent distress - Head Head exam: Present: atraumatic, normocephalic - Eye Eye exam: Present: normal appearance - ENT ENT exam: Present: mucous membranes moist - Neck Neck exam: Present: normal inspection - Respiratory Respiratory exam: Present: normal lung sounds bilaterally. Absent: respiratory distress - Cardiovascular Cardiovascular Exam: Present: regular rate, normal rhythm. Absent: systolic murmur, diastolic murmur, rubs, gallop - GI/Abdominal GI/Abdominal exam: Present: soft, normal bowel sounds - Rectal Rectal exam: Present: deferred - Extremities Exam Extremities exam: Present: normal inspection - Expanded Upper Extremity Exam Right Shoulder Exam: Present: swelling - Back Exam Back exam: Present: normal inspection - Neurological Exam Neurological exam: Present: alert, oriented X3 - Psychiatric Psychiatric exam: Present: normal affect, normal mood - Skin Skin exam: Present: warm, dry, intact, normal color. Absent: rash ED Course Vital Signs 04/11/21 19:59 Temperature 98.5 F Pulse Rate 145 H Respiratory 20 Rate Blood Pressure 105/66 [Right] - Reevaluation(s) Reevaluation #1: 04/11/21 23:22 HR down to 105 , vss pain controlled gout arthritis noted , ED Medical Decision Making - Lab Data Result diagrams: 04/11/21 20:43 04/11/21 20:43 Critical care attestation.: If time is entered above; I have spent that time in minutes in the direct care of this critically ill patient, excluding procedure time. ED Disposition Clinical Impression: Gouty arthritis Disposition: HOME / SELF CARE / HOMELESS Is pt being admited?: No Does the pt Need Aspirin: No Condition: Stable Prescriptions: Colchicine [Colcrys] 0.6 mg PO DAILY #14 tablet Ketorolac [Toradol] 10 mg PO Q6H PRN #14 PRN Reason: Pain
[2021-04-11 23:31] LABS: Amphetamine Screen,Urine PRESUMPTIVE NEGATIVE; Benzodiazepines Screen,Urine PRESUMPTIVE NEGATIVE; Cannabinoid Screen,Urine PRESUMPTIVE NEGATIVE; Cocaine Screen,Urine PRESUMPTIVE NEGATIVE; Methadone Screen,Urine PRESUMPTIVE NEGATIVE; Opiate Screen,Urine PRESUMPTIVE NEGATIVE
== END 2021-04-11 23:40 | disposition home or self-care (01) ==
LOC: ED 19:08
DX: M10.9 Gout, unspecified (principal)
CPT/HCPCS: 36415; 71045; 80053; 80307; 81001; 82140; 83690; 84484; 84550; 85025; 85610; 86140; 96361; 96374; 96375; 99284; J1885; J2270; J7030; Q0162